=== PATIENT | male | born 1955 | race Caucasian/White ===

== ENCOUNTER 2018-04-01 05:49 | Inpatient (IN) | payer BC, MEDICAID ==
[~2018-04-01] VITALS: Ht 190.5 cm; Wt 98.8 kg
[~2018-04-01 05:49] MED LIST: INSUINJ IJ; INSUINJ2 SC
[2018-04-01] MEDS ORDERED: ALBUTEROL SULF 2.5 MG/0.5ML(0.5%) NEB SOLN HHN STA (05:57)
[2018-04-01] MEDS ORDERED: IPRATROPIUM BROM 0.5 MG/2.5ML INH SOL NEB ONE (06:00)
[2018-04-01 08:13] LABS: Urine Bacteria NONE SEEN /hpf (None Seen); Urine Blood TRACE /uL (Negative); Urine Specific Gravity 1.007 (1.001-1.035); Urine WBC <1 /hpf (0 - 3)
[2018-04-01 08:14] LABS: Basophils # (auto) 0.1 uL; Basophils % (auto) 1.3 % (0.0-2.0); Eosinophils # (auto) 0.3 uL; Eosinophils % (auto) 3.8 % (0.0-7.0); Hematocrit 35.7 % (41.0-53.0); Hemoglobin 11.8 g/dL (13.5-17.5); Lymphocytes # (auto) 2.2 uL; Mean Corpuscular Hemoglobin 27.9 pg (28.0-32.0); Mean Corpuscular Hgb Conc. 32.9 g/dL (32.0-36.0); Mean Corpuscular Volume 84.7 fL (80.0-100.0); Monocytes % (auto) 10.8 % (0.0-12.0); Neutrophils # (auto) 5.4 uL; Neutrophils % (auto) 60.1 % (37.0-80.0); Nucleated Red Blood Cells % 0.1 %; Platelet Count (auto) 324 10^3/uL (140-450); Red Blood Cells 4.22 10^6/uL (4.5-5.90); Red Cell Distribution Width 14.9 % (11.8-14.3)
[2018-04-01 08:20] LABS: INR 0.99 (0.9-1.15); Partial Thromboplastin Time 31.8 sec (23.78-33.04); Prothrombin Time 10.6 sec (9.27-12.13)
[2018-04-01 08:28] LABS: Albumin 2.4 g/dL (3.4-5.0); BUN/Creatinine Ratio 14.8; Bilirubin, Total 0.6 mg/dL (0.2-1.0); Calcium 8.6 mg/dL (8.5-10.1); Potassium 4.3 mmol/L (3.5-5.1); Total Protein 7.1 g/dL (6.4-8.2)
[2018-04-01] MEDS ORDERED: AZITHROMYCIN 500MG/ 250ML 250 ML IV ONE (08:45)
[2018-04-01] MEDS ORDERED: cefTRIAXone 1GM/10ml IVPUSH 10 ML IV ONE (08:45)
[2018-04-01] MEDS ORDERED: FUROSEMIDE 40 MG/4 ML VIAL IV ONE (10:45)
[2018-04-01] MEDS ORDERED: POTASSIUM CHL 10 Meq TABLET PO ONE (10:45)
[2018-04-01] MEDS ORDERED: DEXTROSE (50%) 50ML SYRG IV PRN (11:00)
[2018-04-01] MEDS ORDERED: METOPROLOL TARTRATE 25 MG TAB PO ONE (11:00)
[2018-04-01] MEDS ORDERED: ASPirin-EC 81 mg tab PO ONE (11:00)
[2018-04-01] MEDS ORDERED: ACETAMINOPHEN 325 MG TAB PO PRN (11:30)
[2018-04-01] MEDS ORDERED: ONDANSETRON HCL 4 MG/2 ML VIAL IV PRN (11:30)
[2018-04-01] MEDS ORDERED: NITROGLYCERIN 0.4 MG SL TAB SL PRN (11:30)
[2018-04-01] MEDS ORDERED: MORPHINE SULF INJ 2 MG/ML SYRINGE 1ML IV PRN (11:30)
[2018-04-01] MEDS ORDERED: DOCUSATE SOD 100 MG CAP PO PRN (11:30)
[2018-04-01] MEDS ORDERED: HYDROcodone-ACET 5/325MG TAB PO PRN (11:30)
[2018-04-01] MEDS: ALBUTEROL SULF 2.5 MG/0.5ML(0.5%) NEB SOLN NEB SCH ×2 (11:35→18:48)
[2018-04-01] MEDS: ACCU-CHEK COMFORT CURVE STRIP VI SCH ×3 (11:35→21:46)
[2018-04-01] MEDS: IPRATROPIUM BROM 0.5 MG/2.5ML INH SOL NEB SCH ×2 (11:35→18:48)
[2018-04-01] MEDS: InsuLIN REG 1unit/0.01ml Soln (100units/ml) SC SCH ×3 (11:51→21:46)
[2018-04-01 12:58] VITALS: BP 147/95
[2018-04-01] MEDS ORDERED: ATOR20TA PO (13:50)
[2018-04-01] MEDS ORDERED: METO25TA5 PO (13:51)
[2018-04-01] MEDS ORDERED: ASP81EC PO (13:52)
[2018-04-01 14:06] VITALS: BP 147/95
[2018-04-01] MEDS: Boost Glucose Control 8 Ounces PO SCH ×2 (14:47→18:00)
[2018-04-01] MEDS: SODIUM CHLOR 0.9% PF (SALINE LOCK) 10ML VIAL/SYR IV SCH ×2 (14:47→21:45)
[2018-04-01 17:36] VITALS: BP 150/76
[2018-04-01] MEDS: ATORVASTATIN 20 MG TAB PO SCH (21:45)
[2018-04-01] MEDS: INSULIN LANTUS (GLARGINE) 1 /0.01ml (100units/ml) SC SCH (21:46)
[2018-04-01] MEDS: METOPROLOL TARTRATE 25 MG TAB PO SCH (21:46)
[2018-04-01 22:00] VITALS: BP 150/75
[2018-04-02] MEDS: IPRATROPIUM BROM 0.5 MG/2.5ML INH SOL NEB SCH ×4 (00:24→20:10)
[2018-04-02] MEDS: ALBUTEROL SULF 2.5 MG/0.5ML(0.5%) NEB SOLN NEB SCH ×4 (00:24→20:10)
[2018-04-02 05:00] VITALS: BP 141/78
[2018-04-02] MEDS: SODIUM CHLOR 0.9% PF (SALINE LOCK) 10ML VIAL/SYR IV SCH ×3 (06:28→21:40)
[2018-04-02] MEDS: InsuLIN REG 1unit/0.01ml Soln (100units/ml) SC SCH ×4 (06:28→21:41)
[2018-04-02] MEDS: ACCU-CHEK COMFORT CURVE STRIP VI SCH ×4 (06:28→21:41)
[2018-04-02 07:28] LABS: Basophils # (auto) 0.2 uL; Eosinophils # (auto) 0.4 uL; Eosinophils % (auto) 5.1 % (0.0-7.0); Hematocrit 34.6 % (41.0-53.0); Hemoglobin 11.6 g/dL (13.5-17.5); Lymphocytes # (auto) 2.4 uL; Lymphocytes % (auto) 27.9 % (10.0-50.0); Mean Corpuscular Hemoglobin 28.6 pg (28.0-32.0); Mean Corpuscular Hgb Conc. 33.5 g/dL (32.0-36.0); Mean Corpuscular Volume 85.2 fL (80.0-100.0); Monocytes # (auto) 0.9 uL; Monocytes % (auto) 10.6 % (0.0-12.0); Neutrophils # (auto) 4.7 uL; Neutrophils % (auto) 54.4 % (37.0-80.0); Nucleated Red Blood Cells % 0.1 %; Platelet Count (auto) 311 10^3/uL (140-450); Red Blood Cells 4.06 10^6/uL (4.5-5.90); Red Cell Distribution Width 14.7 % (11.8-14.3); White Blood Cell 8.7 10^3/uL (4.4-10.8)
[2018-04-02 07:40] LABS: Chloride 103 mmol/L (98-107); Potassium 4.1 mmol/L (3.5-5.1); Sodium 139 mmol/L (136-145)
[2018-04-02 07:48] LABS: Albumin 2.1 g/dL (3.4-5.0); Anion Gap 13 (5-15); Aspartate Aminotransferase 15 U/L (15-37); Blood Urea Nitrogen 22 mg/dL (7-18); Calcium 8.3 mg/dL (8.5-10.1); Carbon Dioxide 23 mmol/L (21-32); GFR African American 77 mL/min; GFR Non-African American 64 mL/min; Glucose 133 mg/dL (74-106)
[2018-04-02] MEDS: Boost Glucose Control 8 Ounces PO SCH ×3 (08:00→20:35)
[2018-04-02 08:01] LABS: Alanine Aminotransferase 25 U/L (16-61); Alkaline Phosphatase 127 U/L (45-117); Bilirubin, Total 0.4 mg/dL (0.2-1.0); Total Protein 6.3 g/dL (6.4-8.2)
[2018-04-02 09:00] VITALS: BP 142/74
[2018-04-02] MEDS: cefTRIAXone 1GM/10ml IVPUSH 10 ML IV SCH (09:40)
[2018-04-02] MEDS: AZITHROMYCIN 500MG/ 250ML 250 ML IV SCH (09:41)
[2018-04-02] MEDS: FUROSEMIDE 40 MG/4 ML VIAL IV SCH (09:41)
[2018-04-02] MEDS: ASPirin-EC 81 mg tab PO SCH (09:41)
[2018-04-02] MEDS: MULTIPLE VITAMIN TAB PO SCH (09:42)
[2018-04-02] MEDS: POTASSIUM CHL 10 Meq TABLET PO SCH (09:42)
[2018-04-02] MEDS: METOPROLOL TARTRATE 25 MG TAB PO SCH ×2 (09:43→21:41)
[2018-04-02 13:00] VITALS: BP 140/77
[2018-04-02 17:00] VITALS: BP 136/75
[2018-04-02 21:32] VITALS: BP 143/80
[2018-04-02] MEDS: ATORVASTATIN 20 MG TAB PO SCH (21:40)
[2018-04-02] MEDS: INSULIN LANTUS (GLARGINE) 1 /0.01ml (100units/ml) SC SCH (21:41)
[2018-04-03 05:00] VITALS: BP 146/79
[2018-04-03] MEDS: IPRATROPIUM BROM 0.5 MG/2.5ML INH SOL NEB SCH ×4 (06:03→19:40)
[2018-04-03] MEDS: ALBUTEROL SULF 2.5 MG/0.5ML(0.5%) NEB SOLN NEB SCH ×4 (06:03→19:40)
[2018-04-03] MEDS: InsuLIN REG 1unit/0.01ml Soln (100units/ml) SC SCH ×4 (06:25→21:46)
[2018-04-03] MEDS: SODIUM CHLOR 0.9% PF (SALINE LOCK) 10ML VIAL/SYR IV SCH ×3 (06:25→21:46)
[2018-04-03] MEDS: ACCU-CHEK COMFORT CURVE STRIP VI SCH ×4 (06:26→21:41)
[2018-04-03] MEDS: Boost Glucose Control 8 Ounces PO SCH ×3 (07:47→18:00)
[2018-04-03] MEDS: cefTRIAXone 1GM/10ml IVPUSH 10 ML IV SCH (09:57)
[2018-04-03] MEDS: AZITHROMYCIN 500MG/ 250ML 250 ML IV SCH (09:59)
[2018-04-03] MEDS: FUROSEMIDE 40 MG/4 ML VIAL IV SCH (09:59)
[2018-04-03] MEDS: MULTIPLE VITAMIN TAB PO SCH (10:00)
[2018-04-03] MEDS: METOPROLOL TARTRATE 25 MG TAB PO SCH ×2 (10:00→21:40)
[2018-04-03] MEDS: ASPirin-EC 81 mg tab PO SCH (10:01)
[2018-04-03] MEDS: POTASSIUM CHL 10 Meq TABLET PO SCH (10:01)
[2018-04-03 10:17] VITALS: BP 137/79
[2018-04-03 12:27] VITALS: BP 128/70
[2018-04-03 17:14] VITALS: BP 125/67
[2018-04-03 21:30] VITALS: BP 133/68
[2018-04-03] MEDS: ATORVASTATIN 20 MG TAB PO SCH (21:40)
[2018-04-03] MEDS: INSULIN LANTUS (GLARGINE) 1 /0.01ml (100units/ml) SC SCH (21:46)
[2018-04-03] MEDS: TEMAZEPAM 15 MG CAP PO PRN (21:53)
[2018-04-04] VITALS (7 sets, daily range): BP systolic 125–150; BP diastolic 65–84
[2018-04-04] MEDS: ALBUTEROL SULF 2.5 MG/0.5ML(0.5%) NEB SOLN NEB SCH ×4 (01:12→19:03)
[2018-04-04] MEDS: IPRATROPIUM BROM 0.5 MG/2.5ML INH SOL NEB SCH ×4 (01:12→19:03)
[2018-04-04] MEDS: SODIUM CHLOR 0.9% PF (SALINE LOCK) 10ML VIAL/SYR IV SCH ×3 (06:34→21:45)
[2018-04-04] MEDS: InsuLIN REG 1unit/0.01ml Soln (100units/ml) SC SCH ×4 (06:35→21:46)
[2018-04-04] MEDS: ACCU-CHEK COMFORT CURVE STRIP VI SCH ×4 (06:35→21:41)
[2018-04-04] MEDS: Boost Glucose Control 8 Ounces PO SCH ×3 (08:21→18:00)
[2018-04-04] MEDS: AZITHROMYCIN 500MG/ 250ML 250 ML IV SCH (09:28)
[2018-04-04] MEDS: POTASSIUM CHL 10 Meq TABLET PO SCH (09:28)
[2018-04-04] MEDS: cefTRIAXone 1GM/10ml IVPUSH 10 ML IV SCH (09:28)
[2018-04-04] MEDS: METOPROLOL TARTRATE 25 MG TAB PO SCH ×2 (09:28→21:39)
[2018-04-04] MEDS: FUROSEMIDE 40 MG/4 ML VIAL IV SCH (09:28)
[2018-04-04] MEDS: MULTIPLE VITAMIN TAB PO SCH (09:28)
[2018-04-04] MEDS: ASPirin-EC 81 mg tab PO SCH (09:28)
[2018-04-04 16:10] LABS: Basophils # (auto) 0.1 uL; Basophils % (auto) 1.4 % (0.0-2.0); Eosinophils # (auto) 0.4 uL; Eosinophils % (auto) 4.8 % (0.0-7.0); Hematocrit 36.5 % (41.0-53.0); Hemoglobin 12.5 g/dL (13.5-17.5); Lymphocytes # (auto) 2.3 uL; Lymphocytes % (auto) 25.6 % (10.0-50.0); Mean Corpuscular Hemoglobin 29.1 pg (28.0-32.0); Mean Corpuscular Hgb Conc. 34.1 g/dL (32.0-36.0); Mean Corpuscular Volume 85.2 fL (80.0-100.0); Monocytes # (auto) 1.1 uL; Monocytes % (auto) 12.3 % (0.0-12.0); Neutrophils # (auto) 5.1 uL; Neutrophils % (auto) 55.9 % (37.0-80.0); Platelet Count (auto) 305 10^3/uL (140-450); Red Blood Cells 4.29 10^6/uL (4.5-5.90); Red Cell Distribution Width 15.1 % (11.8-14.3); White Blood Cell 9.2 10^3/uL (4.4-10.8)
[2018-04-04 16:27] LABS: Calcium 8.8 mg/dL (8.5-10.1); Potassium 4.5 mmol/L (3.5-5.1)
[2018-04-04] MEDS: ATORVASTATIN 20 MG TAB PO SCH (21:39)
[2018-04-04] MEDS: INSULIN LANTUS (GLARGINE) 1 /0.01ml (100units/ml) SC SCH (21:46)
[2018-04-04] MEDS: TEMAZEPAM 15 MG CAP PO PRN (21:54)
[2018-04-05] MEDS: ALBUTEROL SULF 2.5 MG/0.5ML(0.5%) NEB SOLN NEB SCH ×5 (00:48→23:34)
[2018-04-05] MEDS: IPRATROPIUM BROM 0.5 MG/2.5ML INH SOL NEB SCH ×5 (00:48→23:34)
[2018-04-05 04:57] VITALS: BP 121/56
[2018-04-05] MEDS: SODIUM CHLOR 0.9% PF (SALINE LOCK) 10ML VIAL/SYR IV SCH ×3 (06:08→21:49)
[2018-04-05] MEDS: InsuLIN REG 1unit/0.01ml Soln (100units/ml) SC SCH ×4 (06:08→21:49)
[2018-04-05] MEDS: ACCU-CHEK COMFORT CURVE STRIP VI SCH ×4 (06:08→21:45)
[2018-04-05 06:38] LABS: Basophils # (auto) 0.2 uL; Basophils % (auto) 2.4 % (0.0-2.0); Eosinophils # (auto) 0.5 uL; Eosinophils % (auto) 6.2 % (0.0-7.0); Hematocrit 37.3 % (41.0-53.0); Hemoglobin 12.6 g/dL (13.5-17.5); Lymphocytes # (auto) 2.9 uL; Lymphocytes % (auto) 32.5 % (10.0-50.0); Mean Corpuscular Hemoglobin 28.8 pg (28.0-32.0); Mean Corpuscular Hgb Conc. 33.8 g/dL (32.0-36.0); Mean Corpuscular Volume 85.2 fL (80.0-100.0); Monocytes # (auto) 1.2 uL; Monocytes % (auto) 13.8 % (0.0-12.0); Neutrophils % (auto) 45.1 % (37.0-80.0); Nucleated Red Blood Cells % 0.1 %; Platelet Count (auto) 290 10^3/uL (140-450); Red Blood Cells 4.38 10^6/uL (4.5-5.90); Red Cell Distribution Width 15.1 % (11.8-14.3); White Blood Cell 8.9 10^3/uL (4.4-10.8)
[2018-04-05 07:01] LABS: BUN/Creatinine Ratio 25.7; Calcium 9.1 mg/dL (8.5-10.1); Potassium 4.4 mmol/L (3.5-5.1)
[2018-04-05] MEDS ORDERED: IODIXANOL 320MG/ML 100ML BTL IV ONE (07:25)
[2018-04-05] MEDS ORDERED: LIDOCAINE 2% (LOCAL ANESTH.) PF 5ml SDV ONE (07:25)
[2018-04-05] MEDS: PRO-STAT 64 30ML PO SCH ×2 (08:00→18:09)
[2018-04-05] MEDS ORDERED: VERAPAMIL 2.5MG/ML INJ 2ML VIAL IV ONE (08:20)
[2018-04-05] MEDS ORDERED: ANGIOMAX 250 MG VIAL IV ONE (08:20)
[2018-04-05] MEDS ORDERED: SODIUM CHL 0.9% 0 ML ONE (08:21)
[2018-04-05] MEDS ORDERED: fentaNYL CITRATE 100 MCG/2 ML VL ONE (08:21)
[2018-04-05] MEDS ORDERED: EPTIFIBATIDE INJ (2MG/ML) 10ML VIAL IV ONE (08:21)
[2018-04-05] MEDS ORDERED: MIDAZOLAM HCL 1MG/1ML-2 ML VIAL ONE (08:21)
[2018-04-05] MEDS ORDERED: NITROGLYCERIN 5MG/ML 10ML VIAL IV ONE (08:24)
[2018-04-05] MEDS ORDERED: HEPARIN SODIUM (PORCINE) 5000 UNITS/ML 1ML VIAL ONE (08:48)
[2018-04-05] MEDS: ASPirin-EC 81 mg tab PO SCH (10:58)
[2018-04-05] MEDS: FUROSEMIDE 40 MG/4 ML VIAL IV SCH (10:58)
[2018-04-05] MEDS: AZITHROMYCIN 500MG/ 250ML 250 ML IV SCH (10:58)
[2018-04-05] MEDS: cefTRIAXone 1GM/10ml IVPUSH 10 ML IV SCH (10:58)
[2018-04-05] MEDS: METOPROLOL TARTRATE 25 MG TAB PO SCH ×2 (10:59→21:45)
[2018-04-05] MEDS: MULTIPLE VITAMIN TAB PO SCH (10:59)
[2018-04-05] MEDS: POTASSIUM CHL 10 Meq TABLET PO SCH (10:59)
[2018-04-05 13:00] VITALS: BP 125/73
[2018-04-05 17:00] VITALS: BP 134/68
[2018-04-05] MEDS: ATORVASTATIN 20 MG TAB PO SCH (21:45)
[2018-04-05] MEDS: INSULIN LANTUS (GLARGINE) 1 /0.01ml (100units/ml) SC SCH (21:49)
[2018-04-05 21:53] VITALS: BP 126/65
[2018-04-05] MEDS: TEMAZEPAM 15 MG CAP PO PRN (21:56)
[2018-04-06 04:55] VITALS: BP 146/80
[2018-04-06] MEDS: ALBUTEROL SULF 2.5 MG/0.5ML(0.5%) NEB SOLN NEB SCH ×2 (06:14→11:38)
[2018-04-06] MEDS: IPRATROPIUM BROM 0.5 MG/2.5ML INH SOL NEB SCH ×2 (06:14→11:38)
[2018-04-06] MEDS: SODIUM CHLOR 0.9% PF (SALINE LOCK) 10ML VIAL/SYR IV SCH (06:23)
[2018-04-06] MEDS: ACCU-CHEK COMFORT CURVE STRIP VI SCH ×2 (06:23→11:30)
[2018-04-06] MEDS: InsuLIN REG 1unit/0.01ml Soln (100units/ml) SC SCH ×2 (06:24→11:30)
[2018-04-06 08:00] VITALS: BP 133/76
[2018-04-06] MEDS: PRO-STAT 64 30ML PO SCH (08:00)
[2018-04-06 09:00] VITALS: BP 144/68
[2018-04-06] MEDS: METOPROLOL TARTRATE 25 MG TAB PO SCH (09:07)
[2018-04-06] MEDS: AZITHROMYCIN 500MG/ 250ML 250 ML IV SCH (09:07)
[2018-04-06] MEDS: MULTIPLE VITAMIN TAB PO SCH (09:07)
[2018-04-06] MEDS: ASPirin-EC 81 mg tab PO SCH (09:07)
[2018-04-06] MEDS: POTASSIUM CHL 10 Meq TABLET PO SCH (09:07)
[2018-04-06] MEDS: cefTRIAXone 1GM/10ml IVPUSH 10 ML IV SCH (09:08)
[2018-04-06] MEDS: FUROSEMIDE 40 MG/4 ML VIAL IV SCH (09:09)
[2018-04-06 09:51] VITALS: BP 144/68
== END 2018-04-06 11:45 | disposition home or self-care (01) | DRG 286 ==
LOC: ER 05:53 → TELE 05:54 → TELE-EAST 12:41
PROVIDERS: ADMIT Internal Medicine; ATTEND Family Medicine
PROC: 4A023N7 Measurement of Cardiac Sampling and Pressure, Left Heart, Percutaneous Approach (ICD-10-PCS; principal; 2018-04-05)
PROC: B2111ZZ Fluoroscopy of Multiple Coronary Arteries using Low Osmolar Contrast (ICD-10-PCS; 2018-04-05)
PROC: B2151ZZ Fluoroscopy of Left Heart using Low Osmolar Contrast (ICD-10-PCS; 2018-04-05)
DX: I13.0 Hypertensive heart and chronic kidney disease with heart failure and stage 1 through stage 4 chronic kidney disease, or unspecified chronic kidney disease (principal); A41.9 Sepsis, unspecified organism; J18.9 Pneumonia, unspecified organism; I50.43 Acute on chronic combined systolic (congestive) and diastolic (congestive) heart failure; J45.901 Unspecified asthma with (acute) exacerbation; E87.1 Hypo-osmolality and hyponatremia; E44.0 Moderate protein-calorie malnutrition; D63.8 Anemia in other chronic diseases classified elsewhere; E11.21 Type 2 diabetes mellitus with diabetic nephropathy; E11.22 Type 2 diabetes mellitus with diabetic chronic kidney disease; E78.00 Pure hypercholesterolemia, unspecified; E78.5 Hyperlipidemia, unspecified; I25.10 Atherosclerotic heart disease of native coronary artery without angina pectoris; N18.2 Chronic kidney disease, stage 2 (mild); I25.2 Old myocardial infarction; Z79.4 Long term (current) use of insulin; Z87.01 Personal history of pneumonia (recurrent); Z83.3 Family history of diabetes mellitus; Z68.27 Body mass index [BMI] 27.0-27.9, adult
CPT/HCPCS: 36415; 71046; 80048; 80053; 81001; 82962; 83036; 83605; 83880; 84443; 84484; 85025; 85610; 85730; 86850; 86900; 86901; 87040; 93005; 93306; 94640; 96365; 96375; 99152; J1815; J2250; J3490; Q9967

== ENCOUNTER 2018-05-04 14:55 | Inpatient (IN) | payer BC ==
[~2018-05-04] VITALS: Ht 188 cm; Wt 96.6 kg
[~2018-05-04 14:55] MED LIST changes: +ALBUAER3 IN; +ASP81EC PO; +ATOR20TA PO; +CLOP75TA28 PO; +FURO40TA4 PO; -INSUINJ IJ; +INSUINJ SC; +LISI40TA PO; +METO25TA5 PO; +POTA10TA51 PO
[2018-05-04 15:36] LABS: Basophils # (auto) 0.1 uL; Basophils % (auto) 0.8 % (0.0-2.0); Eosinophils # (auto) 0.5 uL; Eosinophils % (auto) 4.6 % (0.0-7.0); Hematocrit 42.1 % (41.0-53.0); Hemoglobin 14.6 g/dL (13.5-17.5); Lymphocytes # (auto) 3.5 uL; Lymphocytes % (auto) 32.9 % (10.0-50.0); Mean Corpuscular Hemoglobin 29.7 pg (28.0-32.0); Mean Corpuscular Hgb Conc. 34.6 g/dL (32.0-36.0); Mean Corpuscular Volume 85.9 fL (80.0-100.0); Monocytes # (auto) 1.3 uL; Monocytes % (auto) 11.8 % (0.0-12.0); Neutrophils # (auto) 5.3 uL; Neutrophils % (auto) 49.9 % (37.0-80.0); Nucleated Red Blood Cells % 0.1 %; Platelet Count (auto) 202 10^3/uL (140-450); Red Cell Distribution Width 15.5 % (11.8-14.3); White Blood Cell 10.6 10^3/uL (4.4-10.8)
[2018-05-04 15:57] LABS: Alanine Aminotransferase 30 U/L (16-61); Albumin 3.4 g/dL (3.4-5.0); Alkaline Phosphatase 79 U/L (45-117); Anion Gap 10 (5-15); Aspartate Aminotransferase 21 U/L (15-37); BUN/Creatinine Ratio 29.8; Bilirubin, Total 0.4 mg/dL (0.2-1.0); Blood Urea Nitrogen 48 mg/dL (7-18); Carbon Dioxide 24 mmol/L (21-32); Chloride 101 mmol/L (98-107); GFR African American 56 mL/min; GFR Non-African American 46 mL/min; Glucose 161 mg/dL (74-106); Potassium 4.9 mmol/L (3.5-5.1); Sodium 135 mmol/L (136-145); Total Protein 7.9 g/dL (6.4-8.2)
[2018-05-04] MEDS ORDERED: SODIUM CHLORIDE 0.9% 500 ML IV ONE (23:15)
[2018-05-04] MEDS ORDERED: MORPHINE SULF INJ 2 MG/ML SYRINGE 1ML IV PRN (23:15)
[2018-05-04] MEDS ORDERED: ONDANSETRON HCL 4 MG/2 ML VIAL IV ONE (23:15)
[2018-05-04] MEDS ORDERED: NITROGLYCERIN 0.4 MG SL TAB SL PRN (23:15)
[2018-05-04] MEDS ORDERED: ACETAMINOPHEN 500 MG TAB PO PRN (23:15)
[2018-05-04] MEDS ORDERED: HYDROcodone-ACET 5/325MG TAB PO PRN (23:15)
[2018-05-04] MEDS ORDERED: DEXTROSE (50%) 50ML SYRG IV PRN (23:45)
[2018-05-05 01:39] LABS: Urine Bacteria MOD /hpf (None Seen); Urine Blood TRACE /uL (Negative); Urine Hyaline Cast FEW /lpf (0 - 2); Urine Specific Gravity 1.012 (1.001-1.035); Urine WBC 1 /hpf (0 - 3)
[2018-05-05 05:10] VITALS: BP 130/63
[2018-05-05] MEDS: InsuLIN REG 1unit/0.01ml Soln (100units/ml) SC SCH ×4 (07:00→22:09)
[2018-05-05] MEDS: ACCU-CHEK COMFORT CURVE STRIP VI SCH ×4 (07:05→22:08)
[2018-05-05 07:18] LABS: Basophils # (auto) 0.1 uL; Basophils % (auto) 1.2 % (0.0-2.0); Eosinophils # (auto) 0.6 uL; Eosinophils % (auto) 5.5 % (0.0-7.0); Hematocrit 38.2 % (41.0-53.0); Hemoglobin 13.4 g/dL (13.5-17.5); Lymphocytes % (auto) 29.5 % (10.0-50.0); Mean Corpuscular Hgb Conc. 35.2 g/dL (32.0-36.0); Mean Corpuscular Volume 85.1 fL (80.0-100.0); Monocytes # (auto) 1.1 uL; Monocytes % (auto) 10.7 % (0.0-12.0); Neutrophils # (auto) 5.4 uL; Neutrophils % (auto) 53.1 % (37.0-80.0); Nucleated Red Blood Cells % 0.1 %; Platelet Count (auto) 171 10^3/uL (140-450); Red Blood Cells 4.49 10^6/uL (4.5-5.90); Red Cell Distribution Width 15.4 % (11.8-14.3); White Blood Cell 10.1 10^3/uL (4.4-10.8)
[2018-05-05 07:25] LABS: BUN/Creatinine Ratio 34.7; Calcium 8.6 mg/dL (8.5-10.1); Potassium 4.2 mmol/L (3.5-5.1)
[2018-05-05 07:38] LABS: Cholesterol 216 mg/dL (< 200); HDL Cholesterol 32 mg/dL (40-59); LDL Cholesterol 134 mg/dL (< 100); Triglycerides 276 mg/dL (< 150)
[2018-05-05 08:36] VITALS: BP 136/67
[2018-05-05] MEDS: CLOPIDOGREL BISULFATE 75 MG TAB PO SCH (10:28)
[2018-05-05] MEDS: METOPROLOL TARTRATE 25 MG TAB PO SCH ×2 (10:28→21:55)
[2018-05-05 12:24] VITALS: BP 144/73
[2018-05-05 17:35] VITALS: BP 126/68
[2018-05-05] MEDS ORDERED: ATORVASTATIN 20 MG TAB PO SCH (22:00)
[2018-05-05 23:01] VITALS: BP 125/66
[2018-05-06 05:20] VITALS: BP 141/69
[2018-05-06] MEDS ORDERED: LEVOTHYROXINE SODIUM 25 MCG TAB PO SCH (07:00)
[2018-05-06] MEDS: ACCU-CHEK COMFORT CURVE STRIP VI SCH ×2 (07:10→11:59)
[2018-05-06] MEDS: InsuLIN REG 1unit/0.01ml Soln (100units/ml) SC SCH ×2 (07:11→12:00)
[2018-05-06 09:00] VITALS: BP 107/58
[2018-05-06] MEDS: CLOPIDOGREL BISULFATE 75 MG TAB PO SCH (09:47)
[2018-05-06] MEDS: METOPROLOL TARTRATE 25 MG TAB PO SCH (09:48)
[2018-05-06] MEDS ORDERED: LISINOPRIL 20 MG TAB PO SCH (10:00)
[2018-05-06 13:00] VITALS: BP 133/67
[2018-05-06] MEDS ORDERED: ISO60SRT PO (15:26)
[2018-05-06] MEDS ORDERED: OMEP20TA PO (15:26)
[2018-05-06] MEDS ORDERED: LEV50T PO (15:40)
[2018-05-06 17:46] VITALS: BP 115/61
[2018-06-14] MEDS ORDERED: LOSA25TA9 PO (00:15)
[2018-06-14] MEDS ORDERED: AMLO5TAB2 PO (00:15)
== END 2018-05-06 18:00 | disposition home or self-care (01) | DRG 644 ==
LOC: ER 14:55 → TELE-CENTR 14:56
PROVIDERS: ADMIT Nurse Practitioner Family; ATTEND Hospitalist
DX: E03.9 Hypothyroidism, unspecified (principal); I42.9 Cardiomyopathy, unspecified; R07.89 Other chest pain; I12.9 Hypertensive chronic kidney disease with stage 1 through stage 4 chronic kidney disease, or unspecified chronic kidney disease; E78.5 Hyperlipidemia, unspecified; E11.22 Type 2 diabetes mellitus with diabetic chronic kidney disease; E78.00 Pure hypercholesterolemia, unspecified; E78.1 Pure hyperglyceridemia; I13.10 Hypertensive heart and chronic kidney disease without heart failure, with stage 1 through stage 4 chronic kidney disease, or unspecified chronic kidney disease; N18.2 Chronic kidney disease, stage 2 (mild); I25.10 Atherosclerotic heart disease of native coronary artery without angina pectoris; I44.7 Left bundle-branch block, unspecified; K21.9 Gastro-esophageal reflux disease without esophagitis; Z79.4 Long term (current) use of insulin; Z79.899 Other long term (current) drug therapy; Z82.49 Family history of ischemic heart disease and other diseases of the circulatory system; Z85.118 Personal history of other malignant neoplasm of bronchus and lung; Z87.01 Personal history of pneumonia (recurrent); I25.2 Old myocardial infarction; Z83.3 Family history of diabetes mellitus; Z80.1 Family history of malignant neoplasm of trachea, bronchus and lung
CPT/HCPCS: 36415; 70450; 71045; 80048; 80053; 80061; 81001; 82962; 83880; 84443; 84484; 85025; 87081; 93005; 96360; 96372; J1815

== ENCOUNTER 2018-06-01 12:06 | Emergency (ER) | payer BC ==
[~2018-06-01] VITALS: Ht 188 cm; Wt 97.5 kg
[~2018-06-01 12:06] MED LIST changes: +LEV50T PO; +OMEP20TA PO
[2018-06-01 13:48] LABS: Basophils # (auto) 0.1 uL; Basophils % (auto) 1.2 % (0.0-2.0); Eosinophils # (auto) 0.4 uL; Eosinophils % (auto) 3.5 % (0.0-7.0); Hematocrit 42.1 % (41.0-53.0); Hemoglobin 14.2 g/dL (13.5-17.5); Lymphocytes % (auto) 27.9 % (10.0-50.0); Mean Corpuscular Hemoglobin 29.1 pg (28.0-32.0); Mean Corpuscular Hgb Conc. 33.7 g/dL (32.0-36.0); Mean Corpuscular Volume 86.3 fL (80.0-100.0); Monocytes # (auto) 1.1 uL; Monocytes % (auto) 10.3 % (0.0-12.0); Neutrophils # (auto) 6.2 uL; Neutrophils % (auto) 57.1 % (37.0-80.0); Nucleated Red Blood Cells % 0.2 %; Platelet Count (auto) 234 10^3/uL (140-450); Red Blood Cells 4.88 10^6/uL (4.5-5.90); Red Cell Distribution Width 15.5 % (11.8-14.3); White Blood Cell 10.8 10^3/uL (4.4-10.8)
[2018-06-01 14:17] LABS: Alanine Aminotransferase 27 U/L (16-61); Albumin 3.2 g/dL (3.4-5.0); Anion Gap 9 (5-15); Aspartate Aminotransferase 17 U/L (15-37); BUN/Creatinine Ratio 24.2; Blood Urea Nitrogen 53 mg/dL (7-18); Calcium 8.1 mg/dL (8.5-10.1); Carbon Dioxide 22 mmol/L (21-32); Chloride 102 mmol/L (98-107); GFR African American 39 mL/min; GFR Non-African American 32 mL/min; Glucose 270 mg/dL (74-106); Magnesium 2.2 mg/dL (1.6-2.6); Sodium 133 mmol/L (136-145)
[2018-06-01 14:22] LABS: Alkaline Phosphatase 108 U/L (45-117); Bilirubin, Total 0.3 mg/dL (0.2-1.0); Total Protein 7.8 g/dL (6.4-8.2)
[2018-06-01 15:56] VITALS: BP 141/73
[2018-06-14] MEDS ORDERED: AMLO5TAB2 PO (00:15)
[2018-06-14] MEDS ORDERED: LOSA25TA9 PO (00:15)
== END 2018-06-01 18:13 | disposition home or self-care (01) ==
LOC: ER 12:06
DX: R06.02 Shortness of breath (principal); E11.21 Type 2 diabetes mellitus with diabetic nephropathy; E11.65 Type 2 diabetes mellitus with hyperglycemia; E44.1 Mild protein-calorie malnutrition; E78.5 Hyperlipidemia, unspecified; I10 Essential (primary) hypertension; I25.2 Old myocardial infarction; I25.10 Atherosclerotic heart disease of native coronary artery without angina pectoris; Z79.4 Long term (current) use of insulin; Z68.27 Body mass index [BMI] 27.0-27.9, adult
CPT/HCPCS: 36415; 71046; 80053; 83735; 83880; 84484; 85025; 93005

== ENCOUNTER 2018-06-13 17:49 | Inpatient (IN) | payer BC ==
[~2018-06-13] VITALS: Ht 188 cm; Wt 100.0 kg
[~2018-06-13 17:49] MED LIST changes: -POTA10TA51 PO
[2018-06-13 19:21] LABS: Basophils # (auto) 0.2 uL; Basophils % (auto) 1.9 % (0.0-2.0); Eosinophils # (auto) 0.4 uL; Hematocrit 42.2 % (41.0-53.0); Hemoglobin 14.5 g/dL (13.5-17.5); Lymphocytes # (auto) 3.8 uL; Lymphocytes % (auto) 34.6 % (10.0-50.0); Mean Corpuscular Hemoglobin 29.6 pg (28.0-32.0); Mean Corpuscular Hgb Conc. 34.4 g/dL (32.0-36.0); Mean Corpuscular Volume 85.9 fL (80.0-100.0); Monocytes # (auto) 1.4 uL; Monocytes % (auto) 12.6 % (0.0-12.0); Neutrophils # (auto) 5.2 uL; Neutrophils % (auto) 46.9 % (37.0-80.0); Nucleated Red Blood Cells % 0.1 %; Platelet Count (auto) 195 10^3/uL (140-450); Red Blood Cells 4.92 10^6/uL (4.5-5.90); Red Cell Distribution Width 15.1 % (11.8-14.3); White Blood Cell 11.1 10^3/uL (4.4-10.8)
[2018-06-13] MEDS ORDERED: ASPirin 81 mg TAB PO ONE (19:45)
[2018-06-13 19:51] LABS: Alanine Aminotransferase 27 U/L (16-61); Albumin 3.3 g/dL (3.4-5.0); Anion Gap 10 (5-15); Aspartate Aminotransferase 17 U/L (15-37); BUN/Creatinine Ratio 27.2; Blood Urea Nitrogen 41 mg/dL (7-18); Calcium 8.5 mg/dL (8.5-10.1); Carbon Dioxide 22 mmol/L (21-32); Chloride 102 mmol/L (98-107); GFR African American 60 mL/min; GFR Non-African American 50 mL/min; Glucose 173 mg/dL (74-106); Potassium 4.4 mmol/L (3.5-5.1); Sodium 134 mmol/L (136-145)
[2018-06-13 19:55] LABS: Alkaline Phosphatase 95 U/L (45-117); Bilirubin, Total 0.3 mg/dL (0.2-1.0); Total Protein 7.5 g/dL (6.4-8.2)
[2018-06-13 20:52] LABS: INR 0.91 (0.9-1.15); Partial Thromboplastin Time 31.2 sec (23.78-33.04); Prothrombin Time 9.8 sec (9.27-12.13)
[2018-06-13] MEDS ORDERED: DOCUSATE SOD 100 MG CAP PO PRN (22:15)
[2018-06-13] MEDS ORDERED: HYDROcodone-ACET 5/325MG TAB PO PRN (22:15)
[2018-06-13] MEDS ORDERED: MORPHINE SULF INJ 2 MG/ML SYRINGE 1ML IV PRN (22:15)
[2018-06-13] MEDS ORDERED: NITROGLYCERIN 0.4 MG SL TAB SL PRN (22:15)
[2018-06-13] MEDS ORDERED: ONDANSETRON HCL 4 MG/2 ML VIAL IV PRN (22:15)
[2018-06-13] MEDS ORDERED: DEXTROSE (50%) 50ML SYRG IV PRN (22:15)
[2018-06-13] MEDS ORDERED: TEMAZEPAM 15 MG CAP PO PRN (22:15)
[2018-06-13] MEDS ORDERED: ACETAMINOPHEN 325 MG TAB PO PRN (22:15)
[2018-06-13 23:50] VITALS: BP 162/77
[2018-06-14] MEDS: ACCU-CHEK COMFORT CURVE STRIP VI SCH ×5 (00:08→23:29)
[2018-06-14] MEDS: InsuLIN REG 1unit/0.01ml Soln (100units/ml) SC SCH ×5 (00:09→23:34)
[2018-06-14] MEDS ORDERED: LOSA25TA40 PO (00:15)
[2018-06-14] MEDS ORDERED: AMLO5TAB13 PO (00:15)
[2018-06-14] MEDS ORDERED: INSLANTI SC (00:15)
[2018-06-14 05:00] VITALS: BP 150/76
[2018-06-14] MEDS: LEVOTHYROXINE SODIUM 50 MCG TAB PO SCH (06:03)
[2018-06-14 06:51] LABS: Basophils # (auto) 0.1 uL; Eosinophils # (auto) 0.4 uL; Eosinophils % (auto) 4.4 % (0.0-7.0); Hematocrit 39.3 % (41.0-53.0); Hemoglobin 13.7 g/dL (13.5-17.5); Lymphocytes # (auto) 2.8 uL; Lymphocytes % (auto) 28.9 % (10.0-50.0); Mean Corpuscular Hemoglobin 29.5 pg (28.0-32.0); Mean Corpuscular Hgb Conc. 34.7 g/dL (32.0-36.0); Monocytes # (auto) 1.2 uL; Monocytes % (auto) 12.5 % (0.0-12.0); Neutrophils # (auto) 5.1 uL; Neutrophils % (auto) 53.2 % (37.0-80.0); Nucleated Red Blood Cells % 0.1 %; Platelet Count (auto) 160 10^3/uL (140-450); Red Blood Cells 4.63 10^6/uL (4.5-5.90); White Blood Cell 9.6 10^3/uL (4.4-10.8)
[2018-06-14 07:08] LABS: Albumin 2.9 g/dL (3.4-5.0); Calcium 8.9 mg/dL (8.5-10.1); Potassium 4.2 mmol/L (3.5-5.1)
[2018-06-14 07:11] LABS: Bilirubin, Total 0.3 mg/dL (0.2-1.0); Total Protein 6.6 g/dL (6.4-8.2)
[2018-06-14 08:00] VITALS: BP 157/76
[2018-06-14 08:19] VITALS: BP 157/76
[2018-06-14] MEDS: FAMOTIDINE 20 MG TAB PO SCH ×2 (09:13→22:05)
[2018-06-14] MEDS: CLOPIDOGREL BISULFATE 75 MG TAB PO SCH (09:13)
[2018-06-14] MEDS: ASPirin 81 mg TAB PO SCH (09:14)
[2018-06-14] MEDS: LISINOPRIL 20 MG TAB PO SCH ×2 (09:14→09:17)
[2018-06-14] MEDS: METOPROLOL TARTRATE 25 MG TAB PO SCH ×2 (09:14→22:05)
[2018-06-14] MEDS: FUROSEMIDE 40 MG TAB PO SCH (09:15)
[2018-06-14] MEDS: ENOXAPARIN SOD 40 MG/0.4 ML SYRINGE SC SCH (09:15)
[2018-06-14 12:00] VITALS: BP 134/71
[2018-06-14] MEDS ORDERED: diphenhdrAMINE HCL 50 MG/1 ML VL IV ONE (15:45)
[2018-06-14 16:00] VITALS: BP 140/67
[2018-06-14 21:57] VITALS: BP 118/67
[2018-06-14] MEDS: ATORVASTATIN 20 MG TAB PO SCH (22:04)
[2018-06-15 05:24] VITALS: BP 136/75
[2018-06-15] MEDS: InsuLIN REG 1unit/0.01ml Soln (100units/ml) SC SCH ×4 (06:00→23:51)
[2018-06-15] MEDS: ACCU-CHEK COMFORT CURVE STRIP VI SCH ×4 (06:15→23:49)
[2018-06-15] MEDS: LEVOTHYROXINE SODIUM 50 MCG TAB PO SCH (06:16)
[2018-06-15 08:26] VITALS: BP 142/71
[2018-06-15] MEDS: FAMOTIDINE 20 MG TAB PO SCH ×2 (09:49→22:09)
[2018-06-15] MEDS: METOPROLOL TARTRATE 25 MG TAB PO SCH ×2 (09:49→22:00)
[2018-06-15] MEDS: ASPirin 81 mg TAB PO SCH (09:50)
[2018-06-15] MEDS: CLOPIDOGREL BISULFATE 75 MG TAB PO SCH (09:50)
[2018-06-15] MEDS: LISINOPRIL 20 MG TAB PO SCH (09:50)
[2018-06-15] MEDS: FUROSEMIDE 40 MG TAB PO SCH (09:50)
[2018-06-15] MEDS: ENOXAPARIN SOD 40 MG/0.4 ML SYRINGE SC SCH (09:51)
[2018-06-15 12:57] LABS: Urine Bacteria NONE SEEN /hpf (None Seen); Urine Blood Negative /uL (Negative); Urine Specific Gravity 1.007 (1.001-1.035); Urine WBC 1 /hpf (0 - 3)
[2018-06-15 13:00] VITALS: BP_SYST 155
[2018-06-15 13:10] LABS: Protein, Urine 148.6 mg/dL (0.0-11.9)
[2018-06-15] MEDS: amLODIPine BESYLATE 5 MG TAB PO SCH (15:28)
[2018-06-15 16:56] VITALS: BP 143/72
[2018-06-15] MEDS: ATORVASTATIN 20 MG TAB PO SCH (22:07)
[2018-06-15 22:39] VITALS: BP 119/51
[2018-06-16 05:12] VITALS: BP 145/70
[2018-06-16] MEDS: LEVOTHYROXINE SODIUM 50 MCG TAB PO SCH (06:13)
[2018-06-16] MEDS: ACCU-CHEK COMFORT CURVE STRIP VI SCH ×4 (06:16→23:45)
[2018-06-16] MEDS: InsuLIN REG 1unit/0.01ml Soln (100units/ml) SC SCH ×4 (06:17→23:56)
[2018-06-16 07:03] LABS: BUN/Creatinine Ratio 24.4; Bilirubin, Total 0.4 mg/dL (0.2-1.0); Calcium 8.5 mg/dL (8.5-10.1); Potassium 4.7 mmol/L (3.5-5.1); Total Protein 6.9 g/dL (6.4-8.2)
[2018-06-16 09:00] VITALS: BP 135/62
[2018-06-16] MEDS: CLOPIDOGREL BISULFATE 75 MG TAB PO SCH (09:42)
[2018-06-16] MEDS: amLODIPine BESYLATE 5 MG TAB PO SCH (09:43)
[2018-06-16] MEDS: ASPirin 81 mg TAB PO SCH (09:44)
[2018-06-16] MEDS: METOPROLOL TARTRATE 25 MG TAB PO SCH ×2 (09:46→22:53)
[2018-06-16] MEDS: ENOXAPARIN SOD 40 MG/0.4 ML SYRINGE SC SCH (10:00)
[2018-06-16] MEDS: FAMOTIDINE 20 MG TAB PO SCH ×2 (10:00→22:00)
[2018-06-16 13:00] VITALS: BP 144/69
[2018-06-16 17:00] VITALS: BP 118/59
[2018-06-16 21:42] VITALS: BP 142/66
[2018-06-16] MEDS: ATORVASTATIN 20 MG TAB PO SCH (22:52)
[2018-06-17 05:17] VITALS: BP 139/69
[2018-06-17] MEDS: ACCU-CHEK COMFORT CURVE STRIP VI SCH ×4 (06:18→23:05)
[2018-06-17] MEDS: InsuLIN REG 1unit/0.01ml Soln (100units/ml) SC SCH ×4 (06:18→23:05)
[2018-06-17] MEDS: LEVOTHYROXINE SODIUM 50 MCG TAB PO SCH (06:19)
[2018-06-17] MEDS ORDERED: HEPARIN IN NS 1000Units/500mL 0 ML ONE (07:26)
[2018-06-17] MEDS ORDERED: IODIXANOL 320MG/ML 100ML BTL IV ONE (07:26)
[2018-06-17] MEDS ORDERED: LIDOCAINE 2% (LOCAL ANESTH.) PF 5ml SDV ONE (07:26)
[2018-06-17 09:00] VITALS: BP 137/75
[2018-06-17] MEDS: METOPROLOL TARTRATE 25 MG TAB PO SCH ×2 (10:50→21:33)
[2018-06-17] MEDS: FAMOTIDINE 20 MG TAB PO SCH ×2 (10:50→21:33)
[2018-06-17] MEDS: amLODIPine BESYLATE 5 MG TAB PO SCH (10:51)
[2018-06-17] MEDS: CLOPIDOGREL BISULFATE 75 MG TAB PO SCH (10:51)
[2018-06-17] MEDS: ASPirin 81 mg TAB PO SCH (10:51)
[2018-06-17] MEDS: ENOXAPARIN SOD 40 MG/0.4 ML SYRINGE SC SCH (10:52)
[2018-06-17 13:00] VITALS: BP 149/75
[2018-06-17 17:00] VITALS: BP 146/67
[2018-06-17] MEDS: ATORVASTATIN 20 MG TAB PO SCH (21:33)
[2018-06-17 21:59] VITALS: BP 139/72
[2018-06-17 22:05] VITALS: BP 139/72
[2018-06-18 04:51] VITALS: BP 140/74
[2018-06-18] MEDS: ACCU-CHEK COMFORT CURVE STRIP VI SCH ×2 (06:37→12:53)
[2018-06-18] MEDS: LEVOTHYROXINE SODIUM 50 MCG TAB PO SCH (06:37)
[2018-06-18] MEDS: InsuLIN REG 1unit/0.01ml Soln (100units/ml) SC SCH ×2 (06:43→12:52)
[2018-06-18 09:00] VITALS: BP 130/78
[2018-06-18] MEDS: FAMOTIDINE 20 MG TAB PO SCH ×2 (10:05→21:31)
[2018-06-18] MEDS: ASPirin 81 mg TAB PO SCH (10:05)
[2018-06-18] MEDS: CLOPIDOGREL BISULFATE 75 MG TAB PO SCH (10:05)
[2018-06-18] MEDS: METOPROLOL TARTRATE 25 MG TAB PO SCH ×2 (10:06→21:32)
[2018-06-18] MEDS: amLODIPine BESYLATE 5 MG TAB PO SCH (10:07)
[2018-06-18] MEDS: ENOXAPARIN SOD 40 MG/0.4 ML SYRINGE SC SCH (10:07)
[2018-06-18 12:44] VITALS: BP 143/75
[2018-06-18 14:21] LABS: Basophils # (auto) 0.1 uL; Basophils % (auto) 1.3 % (0.0-2.0); Eosinophils # (auto) 0.4 uL; Eosinophils % (auto) 4.3 % (0.0-7.0); Hematocrit 43.1 % (41.0-53.0); Hemoglobin 14.9 g/dL (13.5-17.5); Lymphocytes # (auto) 3.4 uL; Lymphocytes % (auto) 36.3 % (10.0-50.0); Mean Corpuscular Hemoglobin 29.5 pg (28.0-32.0); Mean Corpuscular Hgb Conc. 34.6 g/dL (32.0-36.0); Mean Corpuscular Volume 85.4 fL (80.0-100.0); Monocytes # (auto) 0.9 uL; Neutrophils # (auto) 4.6 uL; Neutrophils % (auto) 48.1 % (37.0-80.0); Platelet Count (auto) 190 10^3/uL (140-450); Red Blood Cells 5.04 10^6/uL (4.5-5.90); Red Cell Distribution Width 15.1 % (11.8-14.3); White Blood Cell 9.5 10^3/uL (4.4-10.8)
[2018-06-18 14:24] LABS: INR 0.94 (0.9-1.15); Prothrombin Time 10.1 sec (9.27-12.13)
[2018-06-18] MEDS ORDERED: LIDOCAINE 2% (LOCAL ANESTH.) PF 5ml SDV ONE (14:39)
[2018-06-18] MEDS ORDERED: IODIXANOL 320MG/ML 100ML BTL IV ONE (14:39)
[2018-06-18] MEDS ORDERED: ANGIOMAX 250 MG VIAL IV ONE (14:44)
[2018-06-18] MEDS ORDERED: fentaNYL CITRATE 100 MCG/2 ML VL ONE (14:44)
[2018-06-18] MEDS ORDERED: EPINEPHrine HCL 1 MG/10 ML SYRG ONE (14:44)
[2018-06-18] MEDS ORDERED: ATROPINE SULF 1 MG/10ml SYR ONE (14:44)
[2018-06-18] MEDS ORDERED: MIDAZOLAM HCL 1MG/1ML-2 ML VIAL ONE (14:44)
[2018-06-18] MEDS ORDERED: SODIUM CHL 0.9% 50 ML ONE (14:44)
[2018-06-18] MEDS: ATORVASTATIN 20 MG TAB PO SCH (21:31)
[2018-06-18 22:00] VITALS: BP 151/75
[2018-06-19] MEDS: ACCU-CHEK COMFORT CURVE STRIP VI SCH ×3 (02:00→11:54)
[2018-06-19 04:49] VITALS: BP 146/77
[2018-06-19] MEDS: LEVOTHYROXINE SODIUM 50 MCG TAB PO SCH (05:47)
[2018-06-19] MEDS: InsuLIN REG 1unit/0.01ml Soln (100units/ml) SC SCH ×3 (05:53→11:54)
[2018-06-19 07:33] LABS: Albumin 3.3 g/dL (3.4-5.0); BUN/Creatinine Ratio 25.3; Bilirubin, Total 0.3 mg/dL (0.2-1.0); Calcium 8.8 mg/dL (8.5-10.1); Phosphorus 3.7 mg/dL (2.5-4.90); Potassium 4.3 mmol/L (3.5-5.1); Total Protein 7.2 g/dL (6.4-8.2)
[2018-06-19 09:00] VITALS: BP 130/80
[2018-06-19] MEDS: CLOPIDOGREL BISULFATE 75 MG TAB PO SCH (09:59)
[2018-06-19] MEDS: FAMOTIDINE 20 MG TAB PO SCH (09:59)
[2018-06-19] MEDS: ASPirin 81 mg TAB PO SCH (09:59)
[2018-06-19] MEDS: ENOXAPARIN SOD 40 MG/0.4 ML SYRINGE SC SCH (10:00)
[2018-06-19] MEDS: amLODIPine BESYLATE 5 MG TAB PO SCH (10:00)
[2018-06-19] MEDS: METOPROLOL TARTRATE 25 MG TAB PO SCH (10:00)
[2018-06-19 13:00] VITALS: BP 144/67
[2018-06-19 15:06] VITALS: BP 144/67
== END 2018-06-19 16:40 | disposition home or self-care (01) | DRG 246 ==
LOC: ER 17:53 → TELE 17:54 → TELE-CENTR 23:08
PROVIDERS: ADMIT Nurse Practitioner; ATTEND Internal Medicine
PROC: 027136Z Dilation of Coronary Artery, Two Arteries with Three Drug-eluting Intraluminal Devices, Percutaneous Approach (ICD-10-PCS; principal; 2018-06-18)
PROC: 4A023N7 Measurement of Cardiac Sampling and Pressure, Left Heart, Percutaneous Approach (ICD-10-PCS; 2018-06-18)
PROC: B2111ZZ Fluoroscopy of Multiple Coronary Arteries using Low Osmolar Contrast (ICD-10-PCS; 2018-06-18)
DX: I25.10 Atherosclerotic heart disease of native coronary artery without angina pectoris (principal); N17.0 Acute kidney failure with tubular necrosis; I13.0 Hypertensive heart and chronic kidney disease with heart failure and stage 1 through stage 4 chronic kidney disease, or unspecified chronic kidney disease; I42.9 Cardiomyopathy, unspecified; E11.21 Type 2 diabetes mellitus with diabetic nephropathy; N18.3 Chronic kidney disease, stage 3 (moderate); E03.9 Hypothyroidism, unspecified; E11.22 Type 2 diabetes mellitus with diabetic chronic kidney disease; E11.65 Type 2 diabetes mellitus with hyperglycemia; E78.5 Hyperlipidemia, unspecified; I08.0 Rheumatic disorders of both mitral and aortic valves; I25.2 Old myocardial infarction; I50.9 Heart failure, unspecified; K21.9 Gastro-esophageal reflux disease without esophagitis; Z82.49 Family history of ischemic heart disease and other diseases of the circulatory system; Z95.5 Presence of coronary angioplasty implant and graft; Z83.3 Family history of diabetes mellitus; Z80.1 Family history of malignant neoplasm of trachea, bronchus and lung
CPT/HCPCS: 36415; 71046; 76775; 80053; 81001; 82570; 82962; 83735; 83880; 84100; 84156; 84300; 84443; 84484; 85025; 85610; 85730; 87081; 92928; 93005; 93306; 93458; 94761; 99152; A6257; C1874; J1815; J2001; J2250; Q9967

== ENCOUNTER 2018-10-17 12:29 | Inpatient (IN) | payer BC | END 2018-10-19 16:04 | disposition home health service (06) | LOC: ER 12:29 → TELE 15:25 → TELE-WESTW 18:00 | DX: I25.119 Atherosclerotic heart disease of native coronary artery with unspecified angina pectoris (principal); E87.1 Hypo-osmolality and hyponatremia; R07.9 Chest pain, unspecified; E87.5 Hyperkalemia; E11.65 Type 2 diabetes mellitus with hyperglycemia; E11.21 Type 2 diabetes mellitus with diabetic nephropathy; E11.22 Type 2 diabetes mellitus with diabetic chronic kidney disease; N18.3 Chronic kidney disease, stage 3 (moderate); Z82.49 Family history of ischemic heart disease and other diseases of the circulatory system; E03.9 Hypothyroidism, unspecified; E78.5 Hyperlipidemia, unspecified; K21.9 Gastro-esophageal reflux disease without esophagitis ==

== ENCOUNTER 2018-11-10 15:05 | Emergency (ER) | payer BC ==
[~2018-11-10] VITALS: Ht 188 cm; Wt 103.0 kg
[~2018-11-10 15:05] MED LIST changes: +AMLO5TAB13 PO; -FURO40TA4 PO; +INSLANTI SC; -INSUINJ2 SC; -LISI40TA PO; -OMEP20TA PO
[2018-11-10 15:43] LABS: Basophils # (auto) 0.1 uL; Basophils % (auto) 0.9 % (0.0-2.0); Eosinophils # (auto) 0.5 uL; Eosinophils % (auto) 4.1 % (0.0-7.0); Hematocrit 41.4 % (41.0-53.0); Hemoglobin 14.3 g/dL (13.5-17.5); Lymphocytes # (auto) 3.3 uL; Mean Corpuscular Hemoglobin 29.8 pg (28.0-32.0); Mean Corpuscular Hgb Conc. 34.5 g/dL (32.0-36.0); Mean Corpuscular Volume 86.5 fL (80.0-100.0); Monocytes # (auto) 1.2 uL; Monocytes % (auto) 10.8 % (0.0-12.0); Neutrophils # (auto) 6.3 uL; Neutrophils % (auto) 55.2 % (37.0-80.0); Platelet Count (auto) 252 10^3/uL (140-450); Red Blood Cells 4.79 10^6/uL (4.5-5.90); Red Cell Distribution Width 13.8 % (11.8-14.3); White Blood Cell 11.4 10^3/uL (4.4-10.8)
[2018-11-10 15:47] LABS: Urine Bacteria NONE SEEN /hpf (None Seen); Urine Blood 1+ /uL (Negative); Urine WBC 1 /hpf (0 - 3)
[2018-11-10 16:10] LABS: Calcium 8.7 mg/dL (8.5-10.1); Potassium 4.8 mmol/L (3.5-5.1)
[2018-11-10 16:18] LABS: Albumin 3.4 g/dL (3.4-5.0); BUN/Creatinine Ratio 21.3; Bilirubin, Total 0.4 mg/dL (0.2-1.0); Total Protein 7.7 g/dL (6.4-8.2)
[2018-11-10 17:30] VITALS: BP 140/72
== END 2018-11-10 17:34 | disposition home or self-care (01) ==
LOC: ER 15:07
DX: I13.0 Hypertensive heart and chronic kidney disease with heart failure and stage 1 through stage 4 chronic kidney disease, or unspecified chronic kidney disease (principal); E11.22 Type 2 diabetes mellitus with diabetic chronic kidney disease; N18.3 Chronic kidney disease, stage 3 (moderate); I50.9 Heart failure, unspecified; E11.21 Type 2 diabetes mellitus with diabetic nephropathy; I25.10 Atherosclerotic heart disease of native coronary artery without angina pectoris; K76.0 Fatty (change of) liver, not elsewhere classified; J44.9 Chronic obstructive pulmonary disease, unspecified; I25.2 Old myocardial infarction; Z85.850 Personal history of malignant neoplasm of thyroid; Z79.4 Long term (current) use of insulin
CPT/HCPCS: 36415; 71046; 76705; 80053; 81001; 84484; 85025; 93005

== ENCOUNTER 2018-11-24 14:46 | Emergency (ER) | payer BC ==
[~2018-11-24] VITALS: Ht 188 cm; Wt 102.1 kg
[2018-11-24 15:00] VITALS: BP 149/66
[2018-11-24 15:40] LABS: Basophils # (auto) 0.1 uL; Basophils % (auto) 1.3 % (0.0-2.0); Eosinophils # (auto) 0.5 uL; Eosinophils % (auto) 4.8 % (0.0-7.0); Hematocrit 41.4 % (41.0-53.0); Hemoglobin 14.1 g/dL (13.5-17.5); Lymphocytes % (auto) 29.3 % (10.0-50.0); Mean Corpuscular Hemoglobin 29.7 pg (28.0-32.0); Mean Corpuscular Hgb Conc. 34.1 g/dL (32.0-36.0); Mean Corpuscular Volume 86.9 fL (80.0-100.0); Monocytes # (auto) 1.1 uL; Monocytes % (auto) 10.6 % (0.0-12.0); Neutrophils # (auto) 5.6 uL; Nucleated Red Blood Cells % 0.1 %; Platelet Count (auto) 218 10^3/uL (140-450); Red Blood Cells 4.76 10^6/uL (4.5-5.90); Red Cell Distribution Width 14.1 % (11.8-14.3); White Blood Cell 10.3 10^3/uL (4.4-10.8)
[2018-11-24 15:54] LABS: Potassium 4.7 mmol/L (3.5-5.1)
[2018-11-24 15:59] LABS: Albumin 3.2 g/dL (3.4-5.0); BUN/Creatinine Ratio 23.9; Bilirubin, Total 0.3 mg/dL (0.2-1.0); Calcium 8.6 mg/dL (8.5-10.1); Total Protein 7.4 g/dL (6.4-8.2)
== END 2018-11-24 21:53 | disposition left against medical advice (07) ==
LOC: ER 14:52
DX: R10.9 Unspecified abdominal pain (principal); Z53.21 Procedure and treatment not carried out due to patient leaving prior to being seen by health care provider
CPT/HCPCS: 36415; 74176; 80053; 82150; 83690; 85025; 93005

== ENCOUNTER 2019-01-07 17:39 | Inpatient (IN) | payer BC ==
[~2019-01-07] VITALS: Ht 188 cm; Wt 101.8 kg
[~2019-01-07 17:39] MED LIST changes: +AMI200T PO; +CEPH-37 PO; +HYDR-4683 PO; +METR500T PO
[2019-01-07 18:25] LABS: Basophils # (auto) 0.1 uL; Basophils % (auto) 1.2 % (0.0-2.0); Eosinophils # (auto) 0.6 uL; Eosinophils % (auto) 5.2 % (0.0-7.0); Hematocrit 33.7 % (41.0-53.0); Lymphocytes # (auto) 2.1 uL; Lymphocytes % (auto) 18.5 % (10.0-50.0); Mean Corpuscular Hemoglobin 28.2 pg (28.0-32.0); Mean Corpuscular Hgb Conc. 32.8 g/dL (32.0-36.0); Mean Corpuscular Volume 86.2 fL (80.0-100.0); Monocytes # (auto) 1.7 uL; Monocytes % (auto) 14.5 % (0.0-12.0); Neutrophils % (auto) 60.6 % (37.0-80.0); Nucleated Red Blood Cells % 0.1 %; Platelet Count (auto) 304 10^3/uL (140-450); Red Blood Cells 3.91 10^6/uL (4.5-5.90); Red Cell Distribution Width 15.1 % (11.8-14.3); White Blood Cell 11.5 10^3/uL (4.4-10.8)
[2019-01-07 18:34] LABS: Alanine Aminotransferase 60 U/L (16-61); Albumin 2.4 g/dL (3.4-5.0); Anion Gap 9 (5-15); Aspartate Aminotransferase 26 U/L (15-37); BUN/Creatinine Ratio 14.3; Blood Urea Nitrogen 31 mg/dL (7-18); Calcium 8.2 mg/dL (8.5-10.1); Carbon Dioxide 21 mmol/L (21-32); Chloride 103 mmol/L (98-107); GFR African American 40 mL/min; GFR Non-African American 33 mL/min; Glucose 209 mg/dL (74-106); Magnesium 2.3 mg/dL (1.6-2.6); Potassium 4.5 mmol/L (3.5-5.1); Sodium 133 mmol/L (136-145)
[2019-01-07 18:39] LABS: Alkaline Phosphatase 178 U/L (45-117); Bilirubin, Total 0.4 mg/dL (0.2-1.0); Total Protein 7.2 g/dL (6.4-8.2)
[2019-01-07] MEDS ORDERED: MECLIZINE HCL 25 MG TAB PO ONE (22:45)
[2019-01-08] VITALS (10 sets, daily range): BP systolic 128–163; BP diastolic 57–80
[2019-01-08] MEDS ORDERED: HYDROcodone-ACET 5/325MG TAB PO PRN (02:15)
[2019-01-08] MEDS ORDERED: ONDANSETRON HCL 4 MG/2 ML VIAL IV PRN (02:15)
[2019-01-08] MEDS ORDERED: DEXTROSE (50%) 50ML SYRG IV PRN (02:15)
[2019-01-08] MEDS ORDERED: ACETAMINOPHEN 500 MG TAB PO PRN (02:15)
[2019-01-08] MEDS ORDERED: TEMAZEPAM 15 MG CAP PO PRN (02:15)
[2019-01-08] MEDS: ACCU-CHEK COMFORT CURVE STRIP VI SCH ×4 (07:05→22:04)
[2019-01-08] MEDS: LEVOTHYROXINE SODIUM 50 MCG TAB PO SCH (07:05)
[2019-01-08] MEDS: InsuLIN REG 1unit/0.01ml Soln (100units/ml) SC SCH ×3 (07:05→17:00)
[2019-01-08 07:23] LABS: Basophils # (auto) 0.2 uL; Basophils % (auto) 1.8 % (0.0-2.0); Eosinophils # (auto) 0.7 uL; Eosinophils % (auto) 7.4 % (0.0-7.0); Hematocrit 30.9 % (41.0-53.0); Hemoglobin 10.2 g/dL (13.5-17.5); Lymphocytes # (auto) 1.3 uL; Lymphocytes % (auto) 13.3 % (10.0-50.0); Mean Corpuscular Hemoglobin 28.2 pg (28.0-32.0); Mean Corpuscular Hgb Conc. 32.9 g/dL (32.0-36.0); Mean Corpuscular Volume 85.6 fL (80.0-100.0); Monocytes # (auto) 1.3 uL; Monocytes % (auto) 12.9 % (0.0-12.0); Neutrophils # (auto) 6.3 uL; Neutrophils % (auto) 64.6 % (37.0-80.0); Platelet Count (auto) 266 10^3/uL (140-450); Red Blood Cells 3.61 10^6/uL (4.5-5.90); Red Cell Distribution Width 14.9 % (11.8-14.3); White Blood Cell 9.8 10^3/uL (4.4-10.8)
[2019-01-08 07:48] LABS: BUN/Creatinine Ratio 14.5; Calcium 8.2 mg/dL (8.5-10.1); Cholesterol 107 mg/dL (< 200); Potassium 4.4 mmol/L (3.5-5.1); Triglycerides 153 mg/dL (< 150)
[2019-01-08 07:50] LABS: HDL Cholesterol 31 mg/dL (40-59); LDL Cholesterol 61 mg/dL (< 100)
[2019-01-08] MEDS ORDERED: FUROSEMIDE 20 MG/2 ML VIAL IV ONE (08:00)
[2019-01-08] MEDS: METOPROLOL TARTRATE 25 MG TAB PO SCH ×2 (09:40→22:03)
[2019-01-08] MEDS: amLODIPine BESYLATE 5 MG TAB PO SCH (09:40)
[2019-01-08] MEDS: AMIODARONE HCL 200 MG TAB PO SCH ×2 (09:40→22:40)
[2019-01-08] MEDS: CLOPIDOGREL BISULFATE 75 MG TAB PO SCH (09:41)
[2019-01-08] MEDS: FAMOTIDINE 20 MG TAB PO SCH ×2 (09:41→22:03)
[2019-01-08] MEDS: ASPirin-EC 81 mg tab PO SCH (09:41)
--- NOTE | 2019-01-08 10:30 | NUR ---
RECEIVED PATIENT FROM ED, NO REPORT RECEIVED, PATIENT IS A/O X4, DENIES ANY CHEST PAIN OR SOB, NO S/S DISTRESS NOTED, IV LEFT FOREARM INTACT AND PATENT, POC DISCUSSED WITH PATIENT, BED LOCKED IN LOWEST POSITION, CALL LIGHT WITHIN REACH, WILL CONTINUE TO MONITOR Q 1HR AND PRN
[2019-01-08 12:53] LABS: Urine Bacteria FEW /hpf (None Seen); Urine Blood 1+ /uL (Negative); Urine Specific Gravity 1.007 (1.001-1.035); Urine WBC 1 /hpf (0 - 3)
[2019-01-08 16:13] LABS: Basophils # (auto) 0.2 uL; Basophils % (auto) 1.8 % (0.0-2.0); Eosinophils # (auto) 0.7 uL; Eosinophils % (auto) 6.9 % (0.0-7.0); Hemoglobin 10.5 g/dL (13.5-17.5); Lymphocytes # (auto) 1.8 uL; Mean Corpuscular Hemoglobin 28.4 pg (28.0-32.0); Mean Corpuscular Hgb Conc. 32.9 g/dL (32.0-36.0); Mean Corpuscular Volume 86.2 fL (80.0-100.0); Monocytes # (auto) 1.4 uL; Monocytes % (auto) 13.9 % (0.0-12.0); Neutrophils % (auto) 59.4 % (37.0-80.0); Nucleated Red Blood Cells % 0.2 %; Platelet Count (auto) 287 10^3/uL (140-450); Red Blood Cells 3.71 10^6/uL (4.5-5.90); Red Cell Distribution Width 15.2 % (11.8-14.3); White Blood Cell 10.1 10^3/uL (4.4-10.8)
--- NOTE | 2019-01-08 19:00 | NUR ---
Opening Shift Note Received shift report from Elaine ANN. Assumed care of patient, awake and alert. Respirations regular and unlabored. No S/S of distress/SOB or pain. Instructed on POC and to call for assist PRN, will continue to monitor for changes Q1hr and PRN. Bed in lowest position, side rails up x2, call light within reach. Continuing to monitor.
[2019-01-08] MEDS ORDERED: ATORVASTATIN 20 MG TAB PO SCH (22:00)
[2019-01-08] MEDS ORDERED: InsuLIN REG 1unit/0.01ml Soln (100units/ml) SC SCH (22:00)
[2019-01-09] VITALS (7 sets, daily range): BP systolic 138–146; BP diastolic 62–78
[2019-01-09] MEDS: LEVOTHYROXINE SODIUM 50 MCG TAB PO SCH (06:18)
[2019-01-09] MEDS: InsuLIN REG 1unit/0.01ml Soln (100units/ml) SC SCH ×2 (06:19→12:17)
[2019-01-09] MEDS: ACCU-CHEK COMFORT CURVE STRIP VI SCH ×2 (06:19→12:16)
--- NOTE | 2019-01-09 07:30 | NUR ---
Opening Shift Note Assumed care of patient, awake and alert. No S/S of distress/SOB or pain. Instructed on POC and to call for assist PRN, will continue to monitor for changes Q1hr and PRN.
[2019-01-09 09:26] LABS: BUN/Creatinine Ratio 15.5; Calcium 8.1 mg/dL (8.5-10.1); Potassium 4.9 mmol/L (3.5-5.1)
[2019-01-09] MEDS: ASPirin-EC 81 mg tab PO SCH (09:58)
[2019-01-09] MEDS: AMIODARONE HCL 200 MG TAB PO SCH (09:58)
[2019-01-09] MEDS: METOPROLOL TARTRATE 25 MG TAB PO SCH (09:59)
[2019-01-09] MEDS: CLOPIDOGREL BISULFATE 75 MG TAB PO SCH (10:05)
[2019-01-09] MEDS: FAMOTIDINE 20 MG TAB PO SCH (10:05)
[2019-01-09] MEDS: amLODIPine BESYLATE 5 MG TAB PO SCH (10:05)
--- NOTE | 2019-01-09 10:29 | NUR ---
PATIENT REPORTS THAT HE WALKS FINE WITHOUT ANY SYMPTOMS. PT DENIES NEED FOR P.T.
--- NOTE | 2019-01-09 11:00 | NUR ---
CALLED [employer] THEY SAID THAT THE PATIENT IS ON THEIR LIST AND THEY WOULD GET TO HIM TODAY. THEY COULD NOT GIVE ME AN EXACT TIME.
--- NOTE | 2019-01-09 17:32 | NUR ---
Discharge instructions given as ordered. Encourage to follow up with PMD as instructed. All questions and concerns addressed. Patient verbalized understanding. IV removed with catheter intact, pressure dressing applied. Telemetry unit returned to [facility]. Patient ambulated to vehicle with all personal belongings, accompanied by staff and family member. No distress noted at time of departure.
== END 2019-01-09 17:32 | disposition home or self-care (01) | DRG 152 ==
LOC: ER 17:47 → TELE 01-08 02:26 → TELE-CENTR 01-08 08:36
PROVIDERS: ADMIT Nurse Practitioner Family; ATTEND Hospitalist
DX: J06.9 Acute upper respiratory infection, unspecified (principal); E43 Unspecified severe protein-calorie malnutrition; I13.0 Hypertensive heart and chronic kidney disease with heart failure and stage 1 through stage 4 chronic kidney disease, or unspecified chronic kidney disease; E87.1 Hypo-osmolality and hyponatremia; G45.9 Transient cerebral ischemic attack, unspecified; E10.22 Type 1 diabetes mellitus with diabetic chronic kidney disease; E78.5 Hyperlipidemia, unspecified; N18.3 Chronic kidney disease, stage 3 (moderate); E03.9 Hypothyroidism, unspecified; E10.65 Type 1 diabetes mellitus with hyperglycemia; E86.0 Dehydration; I25.10 Atherosclerotic heart disease of native coronary artery without angina pectoris; I48.0 Paroxysmal atrial fibrillation; I44.0 Atrioventricular block, first degree; I50.9 Heart failure, unspecified; J44.9 Chronic obstructive pulmonary disease, unspecified; K21.9 Gastro-esophageal reflux disease without esophagitis; Z79.02 Long term (current) use of antithrombotics/antiplatelets; Z79.4 Long term (current) use of insulin; Z79.82 Long term (current) use of aspirin; Z82.49 Family history of ischemic heart disease and other diseases of the circulatory system; Z95.5 Presence of coronary angioplasty implant and graft; Z68.28 Body mass index [BMI] 28.0-28.9, adult; Z90.49 Acquired absence of other specified parts of digestive tract
CPT/HCPCS: 36415; 70450; 70551; 71046; 78582; 80048; 80053; 80061; 81001; 82962; 83735; 84443; 84484; 85025; 85379; 93005; 93306; 96374; G0378; J1815

== ENCOUNTER 2019-08-10 12:57 | Inpatient (IN) | payer BC ==
[~2019-08-10] VITALS: Ht 190.5 cm; Wt 117.0 kg
[~2019-08-10 12:57] MED LIST changes: -AMI200T PO; +AMIO200T4 PO; -AMLO5TAB13 PO; -CEPH-37 PO; -CLOP75TA28 PO; -HYDR-4683 PO; -METR500T PO
[2019-08-10] MEDS ORDERED: SODIUM CHLORIDE 0.9% 1,000 ML IV ONE ×4 (13:22→14:45)
[2019-08-10] MEDS ORDERED: ACETAMINOPHEN 500 MG TAB PO PRN (13:30)
[2019-08-10] MEDS ORDERED: MORPHINE SULF INJ 2 MG/ML SYRINGE 1ML IV PRN (13:30)
[2019-08-10] MEDS ORDERED: ALBUTEROL SULF 2.5 MG/0.5ML(0.5%) NEB SOLN NEB ONE (13:30)
[2019-08-10] MEDS ORDERED: IPRATROPIUM BROM 0.5 MG/2.5ML INH SOL NEB ONE (13:30)
[2019-08-10] MEDS ORDERED: NITROGLYCERIN 0.4 MG SL TAB SL PRN (13:30)
[2019-08-10] MEDS ORDERED: cefTRIAXone 1GM/50ML D5W 50 ML IV ONE (13:30)
[2019-08-10] MEDS ORDERED: DEXTROSE (50%) 50ML SYRG IV PRN (13:30)
[2019-08-10] MEDS ORDERED: AZITHROMYCIN 500MG/ 250ML 250 ML IV ONE (13:30)
[2019-08-10] MEDS: cefTRIAXone 1GM/50ML D5W 50 ML IV SCH (13:46)
[2019-08-10] MEDS: AZITHROMYCIN 500MG/ 250ML 250 ML IV SCH (13:52)
[2019-08-10 14:01] LABS: Basophils # (auto) 0.1 uL; Basophils % (auto) 0.4 % (0.0-2.0); Eosinophils # (auto) 0 uL; Hemoglobin 10.5 g/dL (13.5-17.5); Lymphocytes # (auto) 0.5 uL; Lymphocytes % (auto) 2.6 % (10.0-50.0); Mean Corpuscular Hemoglobin 28.1 pg (28.0-32.0); Mean Corpuscular Hgb Conc. 32.8 g/dL (32.0-36.0); Mean Corpuscular Volume 85.9 fL (80.0-100.0); Monocytes # (auto) 1.8 uL; Monocytes % (auto) 9.6 % (0.0-12.0); Neutrophils % (auto) 87.4 % (37.0-80.0); Platelet Count (auto) 215 10^3/uL (140-450); Red Blood Cells 3.72 10^6/uL (4.5-5.90); Red Cell Distribution Width 15.6 % (11.8-14.3); White Blood Cell 18.3 10^3/uL (4.4-10.8)
[2019-08-10 14:18] LABS: Albumin 1.8 g/dL (3.4-5.0); Calcium 7.3 mg/dL (8.5-10.1); Potassium 4.3 mmol/L (3.5-5.1)
[2019-08-10 14:20] LABS: Lactic Acid w/Reflex 2.2 mmol/L (0.4-2.0)
[2019-08-10 14:21] LABS: BUN/Creatinine Ratio 12.4
[2019-08-10 14:29] LABS: Bilirubin, Total 0.4 mg/dL (0.2-1.0); Total Protein 5.7 g/dL (6.4-8.2)
[2019-08-10 14:41] LABS: Cholesterol 160 mg/dL (< 200); HDL Cholesterol 37 mg/dL (40-59); LDL Cholesterol 97 mg/dL (< 100); Triglycerides 132 mg/dL (< 150)
[2019-08-10 16:54] LABS: INR 1.04 (0.9-1.15); Partial Thromboplastin Time 28.5 sec (23.64-32.05)
[2019-08-10 17:11] VITALS: BP 109/53
[2019-08-10] MEDS: ACCU-CHEK COMFORT CURVE STRIP VI SCH ×2 (17:55→22:05)
[2019-08-10] MEDS: InsuLIN REG 1unit/0.01ml Soln (100units/ml) SC SCH ×2 (17:55→22:04)
[2019-08-10] MEDS: ALBUTEROL SULF 2.5 MG/0.5ML(0.5%) NEB SOLN NEB SCH ×2 (18:00→21:53)
[2019-08-10] MEDS: IPRATROPIUM BROM 0.5 MG/2.5ML INH SOL NEB SCH ×2 (18:00→21:53)
[2019-08-10] MEDS: ATORVASTATIN 20 MG TAB PO SCH (21:45)
[2019-08-10] MEDS: TICAGRELOR 90 MG TAB PO SCH (21:45)
[2019-08-10] MEDS ORDERED: AMIODARONE HCL 200 MG TAB PO SCH (22:00)
[2019-08-11] MEDS: ONDANSETRON HCL 4 MG/2 ML VIAL IV PRN ×2 (00:19→22:23)
[2019-08-11] MEDS: IPRATROPIUM BROM 0.5 MG/2.5ML INH SOL NEB SCH ×3 (06:12→19:16)
[2019-08-11] MEDS: ALBUTEROL SULF 2.5 MG/0.5ML(0.5%) NEB SOLN NEB SCH ×3 (06:12→19:16)
[2019-08-11 06:13] LABS: Basophils # (auto) 0.1 uL; Basophils % (auto) 0.5 % (0.0-2.0); Eosinophils # (auto) 0 uL; Eosinophils % (auto) 0.1 % (0.0-7.0); Hemoglobin 9.6 g/dL (13.5-17.5); Lymphocytes # (auto) 1.4 uL; Lymphocytes % (auto) 7.9 % (10.0-50.0); Mean Corpuscular Hemoglobin 29.7 pg (28.0-32.0); Mean Corpuscular Hgb Conc. 34.4 g/dL (32.0-36.0); Mean Corpuscular Volume 86.4 fL (80.0-100.0); Monocytes # (auto) 1.9 uL; Monocytes % (auto) 10.6 % (0.0-12.0); Neutrophils # (auto) 14.4 uL; Neutrophils % (auto) 80.9 % (37.0-80.0); Platelet Count (auto) 203 10^3/uL (140-450); Red Blood Cells 3.24 10^6/uL (4.5-5.90); Red Cell Distribution Width 15.8 % (11.8-14.3); White Blood Cell 17.8 10^3/uL (4.4-10.8)
[2019-08-11 06:28] LABS: INR 1.1 (0.9-1.15); Partial Thromboplastin Time 32.1 sec (23.64-32.05)
[2019-08-11 06:31] LABS: Albumin 1.6 g/dL (3.4-5.0); BUN/Creatinine Ratio 12.8; Calcium 7.4 mg/dL (8.5-10.1); Potassium 4.3 mmol/L (3.5-5.1)
[2019-08-11 06:33] LABS: Bilirubin, Total 0.3 mg/dL (0.2-1.0); Total Protein 5.4 g/dL (6.4-8.2)
[2019-08-11] MEDS: LEVOTHYROXINE SODIUM 50 MCG TAB PO SCH (06:54)
[2019-08-11] MEDS: InsuLIN REG 1unit/0.01ml Soln (100units/ml) SC SCH ×4 (06:55→22:22)
[2019-08-11] MEDS: ACCU-CHEK COMFORT CURVE STRIP VI SCH ×4 (06:56→22:22)
[2019-08-11] MEDS ORDERED: FAMOTIDINE 20 MG TAB PO SCH ×2 (10:00)
[2019-08-11] MEDS ORDERED: SOD CHL 0.45% 1,000 ML IV SCH (10:30)
[2019-08-11] MEDS: HYDROcodone-ACET 5/325MG TAB PO PRN ×2 (10:38→17:27)
[2019-08-11] MEDS: cefTRIAXone 1GM/50ML D5W 50 ML IV SCH (10:39)
[2019-08-11] MEDS: PANTOPRAZOLE 40 MG TAB PO SCH (10:39)
[2019-08-11] MEDS: TICAGRELOR 90 MG TAB PO SCH ×2 (10:39→22:20)
[2019-08-11] MEDS: AZITHROMYCIN 500MG/ 250ML 250 ML IV SCH (10:39)
[2019-08-11] MEDS: ASPirin-EC 81 mg tab PO SCH (10:39)
[2019-08-11] MEDS ORDERED: ENOXAPARIN SOD 100 MG/1 ML SYRINGE SC ONE (11:00)
[2019-08-11] MEDS: SODIUM CHLORIDE 0.9% 1,000 ML IV SCH ×2 (12:21→20:47)
[2019-08-11] MEDS: MORPHINE SULF INJ 2 MG/ML SYRINGE 1ML IV PRN ×2 (12:58→22:22)
[2019-08-11 16:44] LABS: Urine WBC None Seen /hpf (0 - 3)
[2019-08-11 17:14] LABS: Urine Bacteria FEW /hpf (None Seen); Urine Blood 2+ /uL (Negative); Urine Mucus FEW (None Seen); Urine Specific Gravity 1.013 (1.001-1.035)
[2019-08-11 17:15] LABS: Protein, Urine 607.1 mg/dL (0.0-11.9)
[2019-08-11] MEDS: ATORVASTATIN 20 MG TAB PO SCH (22:20)
[2019-08-11] MEDS: DOXYCYCLINE 100MG/250ML 250 ML IV SCH (22:20)
[2019-08-11] MEDS: METOPROLOL TARTRATE 25 MG TAB PO SCH (22:21)
[2019-08-12 05:43] LABS: Basophils # (auto) 0.1 uL; Basophils % (auto) 0.6 % (0.0-2.0); Eosinophils # (auto) 0.3 uL; Eosinophils % (auto) 2.1 % (0.0-7.0); Hematocrit 27.7 % (41.0-53.0); Hemoglobin 9.4 g/dL (13.5-17.5); Lymphocytes # (auto) 1.5 uL; Lymphocytes % (auto) 10.8 % (10.0-50.0); Mean Corpuscular Hemoglobin 29.4 pg (28.0-32.0); Mean Corpuscular Hgb Conc. 34.1 g/dL (32.0-36.0); Mean Corpuscular Volume 86.3 fL (80.0-100.0); Monocytes # (auto) 1.6 uL; Monocytes % (auto) 11.1 % (0.0-12.0); Neutrophils # (auto) 10.8 uL; Neutrophils % (auto) 75.4 % (37.0-80.0); Platelet Count (auto) 187 10^3/uL (140-450); Red Blood Cells 3.21 10^6/uL (4.5-5.90); Red Cell Distribution Width 15.5 % (11.8-14.3); White Blood Cell 14.3 10^3/uL (4.4-10.8)
[2019-08-12 06:00] LABS: INR 1.01 (0.9-1.15); Partial Thromboplastin Time 32.9 sec (23.64-32.05)
[2019-08-12 06:06] LABS: Calcium 7.7 mg/dL (8.5-10.1); Potassium 4.9 mmol/L (3.5-5.1); Uric Acid 8.2 mg/dL (3.5-7.2)
[2019-08-12 06:12] LABS: BUN/Creatinine Ratio 14.9
[2019-08-12] MEDS: LEVOTHYROXINE SODIUM 50 MCG TAB PO SCH (06:19)
[2019-08-12] MEDS: SODIUM CHLORIDE 0.9% 1,000 ML IV SCH ×2 (06:19→16:10)
[2019-08-12] MEDS: ACCU-CHEK COMFORT CURVE STRIP VI SCH ×4 (06:20→21:27)
[2019-08-12] MEDS: InsuLIN REG 1unit/0.01ml Soln (100units/ml) SC SCH ×4 (06:20→21:26)
[2019-08-12] MEDS: HYDROcodone-ACET 5/325MG TAB PO PRN (06:36)
[2019-08-12] MEDS: IPRATROPIUM BROM 0.5 MG/2.5ML INH SOL NEB SCH ×3 (06:44→19:36)
[2019-08-12] MEDS: ALBUTEROL SULF 2.5 MG/0.5ML(0.5%) NEB SOLN NEB SCH ×3 (06:44→19:35)
[2019-08-12] MEDS: ENOXAPARIN SOD 100 MG/1 ML SYRINGE SC SCH (09:46)
[2019-08-12] MEDS: METOPROLOL TARTRATE 25 MG TAB PO SCH ×2 (10:00→21:26)
[2019-08-12] MEDS: ASPirin-EC 81 mg tab PO SCH (10:00)
[2019-08-12] MEDS: cefTRIAXone 1GM/50ML D5W 50 ML IV SCH (10:00)
[2019-08-12] MEDS: TICAGRELOR 90 MG TAB PO SCH ×2 (10:00→21:25)
[2019-08-12] MEDS: PANTOPRAZOLE 40 MG TAB PO SCH (10:01)
[2019-08-12] MEDS: DOXYCYCLINE 100MG/250ML 250 ML IV SCH ×2 (11:05→21:25)
--- NOTE | 2019-08-12 11:26 | NUR ---
Respiratory note: Unable to give scheduled 1200 medneb tx, pt not in room. Will return for next scheduled tx.
[2019-08-12] MEDS ORDERED: LIDOCAINE 2%HCL (LOCAL ANESTH.) INJ 20ML MDV ONE (13:02)
[2019-08-12] MEDS ORDERED: IOHEXOL 350 MG/ML 100ML IJ ONE (13:02)
[2019-08-12] MEDS ORDERED: ANGIOMAX 250 MG VIAL IV ONE (13:34)
[2019-08-12] MEDS ORDERED: SODIUM CHL 0.9% 50 ML ONE (13:35)
[2019-08-12] MEDS ORDERED: MIDAZOLAM HCL 1MG/1ML-2 ML VIAL ONE (13:35)
[2019-08-12] MEDS ORDERED: fentaNYL CITRATE 100 MCG/2 ML VL ONE (13:35)
--- NOTE | 2019-08-12 13:45 | NUR ---
Discharge planning per consult, patient has orders for a hospice consult with [facility]. Referral was faxed to [facility], placed a follow up call, spoke with Viviana and was advised that they will accept patient on discharge. She presented to the hospital, spoke with nurse Oliveros in ER and patient. Patient advised he was being admitted and had opted to have a heart cath, but agreed to services on discharge. Addendum: 08/12/19 at 1348 by TIM CASTRO Amended: Links added.
[2019-08-12] MEDS ORDERED: IODIXANOL 320MG/ML 100ML BTL IV ONE (14:02)
--- NOTE | 2019-08-12 14:10 | NUR ---
RECEIVED PT FROM [employer] [employer] AT 1400 FROM [facility]. PT HAS A RIGHT FEMORAL DRESSING IN PLACE THAT IS CLEAN AND DRY. NO OBSERVATION OF BLEEDING NOTED. PT IS COMFORTABLE IN BED WITH 2 L/NC. NO DISTRESS NOTED. PTS BED IS LOCKED AND IN THE LOWEST POSITION WITH 2 RAILS UP IN POSITION
[2019-08-12 16:28] VITALS: BP 149/77
[2019-08-12] MEDS ORDERED: OMEP20TA PO (18:47)
[2019-08-12] MEDS ORDERED: TICA90TA PO (18:47)
[2019-08-12] MEDS ORDERED: CLOP75TA28 PO (18:47)
[2019-08-12 20:00] VITALS: BP 142/77
[2019-08-12] MEDS: ATORVASTATIN 20 MG TAB PO SCH (21:25)
[2019-08-12 21:40] VITALS: BP 142/77
[2019-08-13] VITALS (7 sets, daily range): BP systolic 126–153; BP diastolic 64–75
[2019-08-13] MEDS: SODIUM CHLORIDE 0.9% 1,000 ML IV SCH ×3 (02:29→22:45)
[2019-08-13] MEDS: HYDROcodone-ACET 5/325MG TAB PO PRN ×3 (05:15→20:53)
--- NOTE | 2019-08-13 05:16 | NUR ---
BACK PAIN 7/10 PATIENT REPORTS BACK PAIN 7/10 WILL ADMINISTER PAIN MEDICATION PER MD ORDERS ON eMAR.
[2019-08-13 05:21] LABS: Basophils # (auto) 0.1 uL; Basophils % (auto) 0.8 % (0.0-2.0); Eosinophils # (auto) 0.2 uL; Eosinophils % (auto) 1.5 % (0.0-7.0); Hematocrit 27.4 % (41.0-53.0); Lymphocytes # (auto) 1.5 uL; Lymphocytes % (auto) 12.9 % (10.0-50.0); Mean Corpuscular Hemoglobin 28.8 pg (28.0-32.0); Mean Corpuscular Hgb Conc. 32.9 g/dL (32.0-36.0); Mean Corpuscular Volume 87.7 fL (80.0-100.0); Monocytes # (auto) 1.2 uL; Monocytes % (auto) 10.4 % (0.0-12.0); Neutrophils # (auto) 8.7 uL; Neutrophils % (auto) 74.4 % (37.0-80.0); Nucleated Red Blood Cells % 0.1 %; Platelet Count (auto) 210 10^3/uL (140-450); Red Blood Cells 3.12 10^6/uL (4.5-5.90); Red Cell Distribution Width 15.8 % (11.8-14.3); White Blood Cell 11.7 10^3/uL (4.4-10.8)
[2019-08-13 05:39] LABS: BUN/Creatinine Ratio 17.3; Calcium 7.7 mg/dL (8.5-10.1)
[2019-08-13] MEDS: IPRATROPIUM BROM 0.5 MG/2.5ML INH SOL NEB SCH ×2 (06:42→11:46)
[2019-08-13] MEDS: ALBUTEROL SULF 2.5 MG/0.5ML(0.5%) NEB SOLN NEB SCH ×2 (06:42→11:46)
[2019-08-13] MEDS: LEVOTHYROXINE SODIUM 50 MCG TAB PO SCH (07:02)
[2019-08-13] MEDS: InsuLIN REG 1unit/0.01ml Soln (100units/ml) SC SCH ×4 (07:11→21:33)
[2019-08-13] MEDS: ACCU-CHEK COMFORT CURVE STRIP VI SCH ×4 (07:11→21:32)
--- NOTE | 2019-08-13 07:35 | NUR ---
Opening Shift Note Assumed care of patient, awake and alert. No S/S of distress/SOB or pain. For safety the bed is locked and in the lowest position with 2 side rails up in position. Instructed on POC and to call for assist PRN, will continue to monitor for changes in patients status.
[2019-08-13] MEDS: cefTRIAXone 1GM/50ML D5W 50 ML IV SCH (09:29)
[2019-08-13] MEDS: ASPirin-EC 81 mg tab PO SCH (09:29)
[2019-08-13] MEDS: ENOXAPARIN SOD 100 MG/1 ML SYRINGE SC SCH (09:29)
[2019-08-13] MEDS: PANTOPRAZOLE 40 MG TAB PO SCH (09:30)
[2019-08-13] MEDS: METOPROLOL TARTRATE 25 MG TAB PO SCH ×2 (09:30→21:29)
[2019-08-13] MEDS: TICAGRELOR 90 MG TAB PO SCH ×2 (10:10→21:29)
[2019-08-13] MEDS: DOXYCYCLINE 100MG/250ML 250 ML IV SCH (10:45)
--- NOTE | 2019-08-13 15:57 | NUR ---
Discharge planning per consult. Patient has orders for [facility] program. Received a follow up call from Holly (shelter case manager at [facility]) and she advised that she was processing the order with [facility] and that he may need home health upon discharge and if so to send that referral to [facility]. She will be by tomorrow to encounter patient; she advised she came today but patient was in a procedure. She will try to ensure they have updated demographic information on patient and hopefully he will take part in this program in an effort to reduce hospitalizations. Addendum: 08/15/19 at 1819 by TIM CASTRO Per shelter case manager Holly, patient has agreed to go home with [facility] and be followed by their program to reduce hospital encounters. Patient will be seen by [facility] within 24-48 hours upon discharge. Please contact [facility] at [phone] when this patient is ready to discharge.
--- NOTE | 2019-08-13 19:30 | NUR ---
Opening Shift Note Assumed care of patient, awake, AAOx4. No S/S of distress/SOB or pain. On 4L oxygen via nasal cannula, ambulatory. Bed in lowest locked position, side rails up x2, call light within reach. Instructed on POC and to call for assist PRN, will continue to monitor for changes Q1hr and PRN.
[2019-08-13] MEDS: ATORVASTATIN 20 MG TAB PO SCH (21:30)
[2019-08-14] VITALS (7 sets, daily range): BP systolic 142–157; BP diastolic 74–84
[2019-08-14 06:09] LABS: BUN/Creatinine Ratio 16.5; Calcium 7.9 mg/dL (8.5-10.1); Potassium 5.2 mmol/L (3.5-5.1)
[2019-08-14] MEDS: LEVOTHYROXINE SODIUM 50 MCG TAB PO SCH (06:32)
[2019-08-14] MEDS: ACCU-CHEK COMFORT CURVE STRIP VI SCH ×4 (06:33→22:07)
[2019-08-14] MEDS: InsuLIN REG 1unit/0.01ml Soln (100units/ml) SC SCH ×4 (06:33→22:08)
[2019-08-14] MEDS: ALBUTEROL SULF 2.5 MG/0.5ML(0.5%) NEB SOLN NEB SCH ×3 (08:25→18:32)
[2019-08-14] MEDS: IPRATROPIUM BROM 0.5 MG/2.5ML INH SOL NEB SCH ×3 (08:25→18:32)
[2019-08-14] MEDS: SODIUM CHLORIDE 0.9% 1,000 ML IV SCH ×3 (08:45→18:48)
[2019-08-14] MEDS: ENOXAPARIN SOD 100 MG/1 ML SYRINGE SC SCH ×2 (10:00→10:08)
[2019-08-14] MEDS: ASPirin-EC 81 mg tab PO SCH (10:08)
[2019-08-14] MEDS: PANTOPRAZOLE 40 MG TAB PO SCH (10:08)
[2019-08-14] MEDS: TICAGRELOR 90 MG TAB PO SCH ×2 (10:08→22:19)
[2019-08-14] MEDS: METOPROLOL TARTRATE 25 MG TAB PO SCH ×2 (10:09→22:04)
--- NOTE | 2019-08-14 11:58 | NUR ---
Nutrition Assessment Notes please see attached link for complete assessment Est. Needs based on ABW (101 kg): 7055-2515 kcal (23-25 kcal/kgBW), 80-101 gms pro (0.8-1.0 gms/kgBW r/t elev RFT CKD). Will continue to monitor pertinent labs and reassess nutrient need prn Addendum: 08/14/19 at [address] Amended: Links added.
[2019-08-14] MEDS: PROMETHAZINE-DM 5 ML ORAL SYRUP PO PRN ×2 (12:13→23:22)
--- NOTE | 2019-08-14 13:25 | NUR ---
Midline Placement: Patient educated on need for midline placement. All risks and benefits explained and all questions and concerns addresses prior to procedure. 18g/10cm midline inserted via right basilic vein using Ultrasound. Sterile technique utilized. Blood return obtained from lumen and flushed easily with NS using proper technique. Midline secured with saline lock; biodisc and occlusive dressing applied. Primary RN notified. Midline lot #[id number]
--- NOTE | 2019-08-14 19:30 | NUR ---
Opening Shift Note Assumed care of patient, awake, AA&Ox4. No S/S of distress/SOB or pain. On 4L oxygen via nasal cannula. Ambulatory Q4hr. Midline to LESLY intact and asymptomatic. Bed in lowest locked position, side rails up x2, call light within reach. Instructed on POC and to call for assist PRN, will continue to monitor for changes Q1hr and PRN.
[2019-08-14] MEDS: ATORVASTATIN 20 MG TAB PO SCH (22:03)
[2019-08-14] MEDS: HYDROcodone-ACET 5/325MG TAB PO PRN (23:22)
[2019-08-15 05:08] VITALS: BP 140/75
[2019-08-15] MEDS: InsuLIN REG 1unit/0.01ml Soln (100units/ml) SC SCH ×4 (06:25→22:00)
[2019-08-15] MEDS: ACCU-CHEK COMFORT CURVE STRIP VI SCH ×4 (06:25→22:00)
[2019-08-15] MEDS: LEVOTHYROXINE SODIUM 50 MCG TAB PO SCH (06:25)
[2019-08-15 06:33] LABS: Calcium 8.2 mg/dL (8.5-10.1)
[2019-08-15] MEDS: ALBUTEROL SULF 2.5 MG/0.5ML(0.5%) NEB SOLN NEB SCH ×3 (06:44→18:40)
[2019-08-15] MEDS: IPRATROPIUM BROM 0.5 MG/2.5ML INH SOL NEB SCH ×3 (06:44→18:40)
[2019-08-15 07:35] VITALS: BP 146/77
[2019-08-15 09:00] VITALS: BP 147/81
--- NOTE | 2019-08-15 09:18 | NUR ---
PAGED DR BURGESS TO NOTIFY HIM OF BUN 86.
[2019-08-15] MEDS: SODIUM CHLORIDE 0.9% 1,000 ML IV SCH (09:19)
[2019-08-15] MEDS: TICAGRELOR 90 MG TAB PO SCH ×2 (09:38→22:34)
[2019-08-15] MEDS: ASPirin-EC 81 mg tab PO SCH (09:38)
[2019-08-15] MEDS: PANTOPRAZOLE 40 MG TAB PO SCH (09:38)
[2019-08-15] MEDS: METOPROLOL TARTRATE 25 MG TAB PO SCH ×2 (09:38→22:34)
[2019-08-15] MEDS: HYDROcodone-ACET 5/325MG TAB PO PRN ×2 (09:39→20:23)
[2019-08-15] MEDS: PROMETHAZINE-DM 5 ML ORAL SYRUP PO PRN ×2 (09:39→20:23)
[2019-08-15] MEDS ORDERED: BUMETANIDE 2.5mg/10ml (0.25 mg/ml) INJ IV ONE (09:45)
[2019-08-15] MEDS: SODIUM BICARBONATE 50ML VIAL 100 ML in SOD CHL 0.45% 1,000 ML IV SCH (10:03)
[2019-08-15 13:00] VITALS: BP 142/81
[2019-08-15 17:16] VITALS: BP 148/79
--- NOTE | 2019-08-15 19:00 | NUR ---
Opening Shift Note Assumed care of patient, awake and alert. No S/S of distress/SOB or pain. Instructed on POC and to call for assist PRN, will continue to monitor for changes Q1hr and PRN.
[2019-08-15 21:00] VITALS: BP 142/76
[2019-08-15] MEDS: ATORVASTATIN 20 MG TAB PO SCH (22:34)
[2019-08-16] MEDS: PROMETHAZINE-DM 5 ML ORAL SYRUP PO PRN ×2 (02:27→22:02)
[2019-08-16 04:30] VITALS: BP 139/81
[2019-08-16 05:47] LABS: Basophils # (auto) 0.1 uL; Basophils % (auto) 0.7 % (0.0-2.0); Eosinophils # (auto) 0.1 uL; Eosinophils % (auto) 0.8 % (0.0-7.0); Hematocrit 28.4 % (41.0-53.0); Hemoglobin 9.3 g/dL (13.5-17.5); Lymphocytes # (auto) 1.3 uL; Lymphocytes % (auto) 8.8 % (10.0-50.0); Mean Corpuscular Hemoglobin 28.5 pg (28.0-32.0); Mean Corpuscular Hgb Conc. 32.9 g/dL (32.0-36.0); Mean Corpuscular Volume 86.7 fL (80.0-100.0); Monocytes # (auto) 1.6 uL; Monocytes % (auto) 11.2 % (0.0-12.0); Neutrophils # (auto) 11.6 uL; Neutrophils % (auto) 78.5 % (37.0-80.0); Platelet Count (auto) 308 10^3/uL (140-450); Red Blood Cells 3.28 10^6/uL (4.5-5.90); Red Cell Distribution Width 15.7 % (11.8-14.3); White Blood Cell 14.7 10^3/uL (4.4-10.8)
[2019-08-16 06:09] LABS: Albumin 1.6 g/dL (3.4-5.0); Calcium 8.3 mg/dL (8.5-10.1)
[2019-08-16 06:12] LABS: BUN/Creatinine Ratio 16.5; Bilirubin, Total 0.3 mg/dL (0.2-1.0); Phosphorus 8.1 mg/dL (2.5-4.90); Total Protein 6.2 g/dL (6.4-8.2)
[2019-08-16] MEDS: ALBUTEROL SULF 2.5 MG/0.5ML(0.5%) NEB SOLN NEB SCH ×3 (06:14→18:22)
[2019-08-16] MEDS: IPRATROPIUM BROM 0.5 MG/2.5ML INH SOL NEB SCH ×3 (06:14→18:22)
--- NOTE | 2019-08-16 06:23 | NUR ---
Oksana Sun [employer] conservation laborer called stating patient has an elevated K+ 5.6 [address] P[address] Brown awaiting orders. Will continue to monitor. Addendum: 08/16/19 at 0630 by PONCE DUKES RN RN Correction BUN 92.
[2019-08-16 06:25] LABS: Potassium 5.6 mmol/L (3.5-5.1)
[2019-08-16] MEDS: LEVOTHYROXINE SODIUM 50 MCG TAB PO SCH (06:43)
[2019-08-16] MEDS: InsuLIN REG 1unit/0.01ml Soln (100units/ml) SC SCH ×4 (06:43→22:00)
[2019-08-16] MEDS: ACCU-CHEK COMFORT CURVE STRIP VI SCH ×4 (06:43→22:02)
[2019-08-16 07:33] VITALS: BP 146/77
[2019-08-16] MEDS: SODIUM BICARBONATE 50ML VIAL 100 ML in SOD CHL 0.45% 1,000 ML IV SCH (08:16)
[2019-08-16 09:00] VITALS: BP 124/74
[2019-08-16] MEDS: PANTOPRAZOLE 40 MG TAB PO SCH (09:48)
[2019-08-16] MEDS: ASPirin-EC 81 mg tab PO SCH (09:48)
[2019-08-16] MEDS: TICAGRELOR 90 MG TAB PO SCH ×2 (09:48→22:01)
[2019-08-16] MEDS: METOPROLOL TARTRATE 25 MG TAB PO SCH ×2 (09:49→22:02)
--- NOTE | 2019-08-16 11:15 | NUR ---
DR RICHARDS AT BEDSIDE DISCUSSED HEMODIALYSIS WITH PATIENT. PATIENT VERBALIZED UNDERSTANDING. IR CONSULT PLACED FOR HEMODIALYSIS CATHETER. ONCE CATHETER IS PLACED HE WILL PLACE ORDERS FOR HEMODIALYSIS.
[2019-08-16] MEDS ORDERED: SEVELAMER 800 MG TAB PO ONE (11:45)
[2019-08-16 13:00] VITALS: BP 137/75
[2019-08-16] MEDS: HYDROcodone-ACET 5/325MG TAB PO PRN ×2 (14:11→22:01)
[2019-08-16] MEDS: SODIUM ZIRCONIUM CYCL 10 GM PAK PO SCH ×2 (15:24→22:00)
[2019-08-16 17:00] VITALS: BP 137/76
[2019-08-16] MEDS: Glucerna Carbsteady SHAKE Stawberry 8oz PO SCH (18:24)
[2019-08-16 18:59] LABS: BUN/Creatinine Ratio 16.5; Calcium 8.1 mg/dL (8.5-10.1); Potassium 5.3 mmol/L (3.5-5.1)
--- NOTE | 2019-08-16 19:10 | NUR ---
Opening Shift Note Assumed care of patient, awake and alert. No S/S of distress/SOB or pain. Safety measures in place bed in lowest position, side rails x2 up, and call light within reach. Instructed on POC and to call for assist PRN, will continue to monitor for changes Q1hr and PRN.
--- NOTE | 2019-08-16 19:40 | NUR ---
Laboratory called patient has critical BUN 92, aware. Will continue to monitor.
[2019-08-16] MEDS: ATORVASTATIN 20 MG TAB PO SCH (22:01)
[2019-08-16 22:13] VITALS: BP 128/68
[2019-08-17] VITALS (8 sets, daily range): BP systolic 121–146; BP diastolic 62–77
[2019-08-17 05:30] LABS: Basophils # (auto) 0.1 uL; Basophils % (auto) 0.7 % (0.0-2.0); Eosinophils # (auto) 0.2 uL; Eosinophils % (auto) 1.8 % (0.0-7.0); Hematocrit 26.2 % (41.0-53.0); Hemoglobin 8.8 g/dL (13.5-17.5); Lymphocytes # (auto) 1.5 uL; Lymphocytes % (auto) 11.7 % (10.0-50.0); Mean Corpuscular Hemoglobin 28.9 pg (28.0-32.0); Mean Corpuscular Hgb Conc. 33.6 g/dL (32.0-36.0); Monocytes # (auto) 1.6 uL; Monocytes % (auto) 12.2 % (0.0-12.0); Neutrophils # (auto) 9.4 uL; Neutrophils % (auto) 73.6 % (37.0-80.0); Nucleated Red Blood Cells % 0.1 %; Platelet Count (auto) 295 10^3/uL (140-450); Red Blood Cells 3.04 10^6/uL (4.5-5.90); Red Cell Distribution Width 15.5 % (11.8-14.3); White Blood Cell 12.7 10^3/uL (4.4-10.8)
[2019-08-17] MEDS: SODIUM BICARBONATE 50ML VIAL 100 ML in SOD CHL 0.45% 1,000 ML IV SCH (05:30)
[2019-08-17] MEDS: SODIUM ZIRCONIUM CYCL 10 GM PAK PO SCH ×3 (05:57→21:53)
--- NOTE | 2019-08-17 06:13 | NUR ---
Chemistry called with critical lab value for BUN 94. Will notify physician and await orders. Will continue to monitor.
[2019-08-17] MEDS: InsuLIN REG 1unit/0.01ml Soln (100units/ml) SC SCH ×4 (06:34→21:54)
[2019-08-17] MEDS: ACCU-CHEK COMFORT CURVE STRIP VI SCH ×4 (06:34→21:54)
[2019-08-17] MEDS: LEVOTHYROXINE SODIUM 50 MCG TAB PO SCH (06:34)
[2019-08-17 06:37] LABS: Anion Gap 12 (5-15); Carbon Dioxide 21 mmol/L (21-32); Chloride 100 mmol/L (98-107); Glucose 188 mg/dL (74-106); Potassium 4.8 mmol/L (3.5-5.1); Sodium 133 mmol/L (136-145)
[2019-08-17 06:38] LABS: Alanine Aminotransferase 36 U/L (16-61); Albumin 1.5 g/dL (3.4-5.0); Alkaline Phosphatase 189 U/L (45-117); Aspartate Aminotransferase 29 U/L (15-37); BUN/Creatinine Ratio 17.1; Bilirubin, Total 0.3 mg/dL (0.2-1.0); Blood Urea Nitrogen 94 mg/dL (7-18); Calcium 7.7 mg/dL (8.5-10.1); GFR African American 14 mL/min; GFR Non-African American 11 mL/min; Total Protein 5.7 g/dL (6.4-8.2)
[2019-08-17] MEDS: ALBUTEROL SULF 2.5 MG/0.5ML(0.5%) NEB SOLN NEB SCH ×4 (07:21→23:34)
[2019-08-17] MEDS: IPRATROPIUM BROM 0.5 MG/2.5ML INH SOL NEB SCH ×4 (07:21→23:34)
[2019-08-17] MEDS: Glucerna Carbsteady SHAKE Stawberry 8oz PO SCH ×3 (08:00→17:40)
[2019-08-17] MEDS: METOPROLOL TARTRATE 25 MG TAB PO SCH ×2 (09:41→21:53)
[2019-08-17] MEDS: PANTOPRAZOLE 40 MG TAB PO SCH (09:41)
[2019-08-17] MEDS: ASPirin-EC 81 mg tab PO SCH (09:41)
[2019-08-17] MEDS: TICAGRELOR 90 MG TAB PO SCH ×2 (09:41→21:52)
[2019-08-17] MEDS: HYDROcodone-ACET 5/325MG TAB PO PRN (14:06)
--- NOTE | 2019-08-17 16:00 | NUR ---
PT REFUSED P.T. X 2.
[2019-08-17] MEDS: SEVELAMER 800 MG TAB PO SCH (17:40)
[2019-08-17] MEDS: ATORVASTATIN 20 MG TAB PO SCH (21:53)
[2019-08-17] MEDS: PROMETHAZINE-DM 5 ML ORAL SYRUP PO PRN (21:54)
[2019-08-18] VITALS (7 sets, daily range): BP systolic 109–146; BP diastolic 55–77
[2019-08-18] MEDS: SODIUM BICARBONATE 50ML VIAL 100 ML in SOD CHL 0.45% 1,000 ML IV SCH ×2 (03:17→21:53)
[2019-08-18] MEDS: PROMETHAZINE-DM 5 ML ORAL SYRUP PO PRN ×3 (03:55→21:53)
[2019-08-18 05:27] LABS: Hematocrit 27.6 % (41.0-53.0); Hemoglobin 9.4 g/dL (13.5-17.5); Mean Corpuscular Hemoglobin 29.6 pg (28.0-32.0); Mean Corpuscular Hgb Conc. 34.2 g/dL (32.0-36.0); Mean Corpuscular Volume 86.6 fL (80.0-100.0); Platelet Count (auto) 316 10^3/uL (140-450); Red Blood Cells 3.19 10^6/uL (4.5-5.90); Red Cell Distribution Width 15.4 % (11.8-14.3); White Blood Cell 10.2 10^3/uL (4.4-10.8)
[2019-08-18] MEDS: SODIUM ZIRCONIUM CYCL 10 GM PAK PO SCH ×3 (05:33→23:50)
[2019-08-18 05:37] LABS: Band Neutrophils % (manual) 0; Basophils % (manual) 0 (0.0-2.0); Blast Cells 0; Eosinophils % (manual) 0 (0-7); Metamyelocytes % 0; Myelocytes % 0; Promyelocytes % 0; Reactive Lymphocytes 0
[2019-08-18 05:46] LABS: Albumin 1.5 g/dL (3.4-5.0); Calcium 7.9 mg/dL (8.5-10.1); Potassium 4.4 mmol/L (3.5-5.1)
[2019-08-18 05:48] LABS: BUN/Creatinine Ratio 17.8
[2019-08-18 05:50] LABS: Bilirubin, Total 0.3 mg/dL (0.2-1.0); Total Protein 5.7 g/dL (6.4-8.2)
--- NOTE | 2019-08-18 05:55 | NUR ---
Joshua from Chemistry called patient has improved critical BUN 90. Physician aware. Will continue to monitor.
[2019-08-18] MEDS: ACCU-CHEK COMFORT CURVE STRIP VI SCH ×4 (06:36→21:36)
[2019-08-18] MEDS: InsuLIN REG 1unit/0.01ml Soln (100units/ml) SC SCH ×4 (06:37→21:36)
--- NOTE | 2019-08-18 06:37 | NUR ---
Patient refused insulin for a BS of 159. Patient educated on the risk and benefits. Patient verbalized understanding. Will continue to monitor. Will inform dayshift RN.
[2019-08-18 06:44] LABS: Lymphocytes % (manual) 9 (10.0-50.0); Monocytes % (manual) 14 (0-12)
[2019-08-18] MEDS: LEVOTHYROXINE SODIUM 50 MCG TAB PO SCH (06:48)
--- NOTE | 2019-08-18 07:14 | NUR ---
PAGED DR RICHARDS TO NOTIFY HIM OF KIDNEY FUNCTION IMPROVING.
[2019-08-18] MEDS: IPRATROPIUM BROM 0.5 MG/2.5ML INH SOL NEB SCH ×3 (07:23→19:08)
[2019-08-18] MEDS: ALBUTEROL SULF 2.5 MG/0.5ML(0.5%) NEB SOLN NEB SCH ×3 (07:23→19:08)
[2019-08-18] MEDS: SEVELAMER 800 MG TAB PO SCH ×3 (08:00→17:52)
[2019-08-18] MEDS: Glucerna Carbsteady SHAKE Stawberry 8oz PO SCH ×2 (08:00→12:20)
[2019-08-18] MEDS: TICAGRELOR 90 MG TAB PO SCH ×2 (10:00→21:33)
[2019-08-18] MEDS: PANTOPRAZOLE 40 MG TAB PO SCH (10:00)
[2019-08-18] MEDS: ASPirin-EC 81 mg tab PO SCH (10:00)
[2019-08-18] MEDS: METOPROLOL TARTRATE 25 MG TAB PO SCH ×2 (10:00→21:34)
[2019-08-18 10:27] LABS: INR 1.08 (0.9-1.15)
--- NOTE | 2019-08-18 11:29 | NUR ---
PAGED DR RICHARDS BECAUSE PATIENT WANTS TO WAIT ANOTHER DAY TO SEE IF LABS IMPROVE.
[2019-08-18 11:49] LABS: Hepatitis B Surface Antigen Negative (Negative); Hepatitis C Antibody Negative (Negative)
--- NOTE | 2019-08-18 12:00 | NUR ---
SPOKE TO DR RICHARDS INFORMED HIM THAT PATIENT WANTS TO WAIT ANOTHER DAY TO SEE IF LABS IMPROVE. DR RICHARDS SAID THAT WAS FINE.
--- NOTE | 2019-08-18 12:01 | NUR ---
SPOKE TO HAKAN Huerta IN RADIOLOGY INFORMED HER THAT DR RICHARDS WANTS A [facility] DIALYSIS CATHETER PLACED TOMORROW IF LABS DON'T IMPROVE. SHE VERBALIZED UNDERSTANDING SAID SHE INFORM DR LI AND TO KEEP PATIENT NPO AFTER MIDNIGHT.
--- NOTE | 2019-08-18 12:10 | NUR ---
SPOKE TO DR LI RE: DR RICHARDS'S REQUEST FOR TUNNELED CATHETER PLACEMENT. ALSO INFORMED MD OF PATIENT'S CHOICE TO WAIT UNTIL TOMORROW TO SEE IF RENAL LABS IMPROVE. COAGS NOTED. DANIEL IN OUTPATIENT CLERK INFORMED OF SAME.
[2019-08-18] MEDS: BUMETANIDE 2.5mg/10ml (0.25 mg/ml) INJ IV SCH (12:27)
[2019-08-18] MEDS: Nepro With Carbsteady ButterPecan 8oz Carton PO SCH (17:52)
[2019-08-18] MEDS: HYDROcodone-ACET 5/325MG TAB PO PRN (18:11)
--- NOTE | 2019-08-18 19:25 | NUR ---
Received report from Laurel ANNsenior windows systems administrator catheter placement cancelled per patient request, Julian coelho, spoke to patient and agreed to continue to monitor labs tomorrow. Pt does not want dialysis at this time, refused cath placement today, wants to wait a couple of days to see lab trend, see if they continue to improve. Per RN may be following up outpatient
--- NOTE | 2019-08-18 20:00 | NUR ---
Opening Shift Note Assumed care of patient, awake and alert x4. No S/S of distress/SOB on 2L NC, or pain. Instructed on POC and to call for assistance PRN, will continue to monitor for changes Q1hr and PRN. Pt spoke to Dr. Jordan agreed to wait to see if renal labs continue to improve, hold off dialysis access insertion pending for now. Pt requested to wait a couple of days to see if they improve. May follow up outpatient per report from day nurse Laurel.
[2019-08-18] MEDS: ATORVASTATIN 20 MG TAB PO SCH (21:34)
[2019-08-18] MEDS: INSULIN LANTUS (GLARGINE) 1 /0.01ml (100units/ml) SC SCH (21:35)
--- NOTE | 2019-08-18 21:36 | NUR ---
Refused Lantus Pt refused lantus, worried his blood sugar will drop since it has been well controlled without it, administered regular insulin as ordered. Will continue to monitor
[2019-08-19] VITALS (7 sets, daily range): BP systolic 118–136; BP diastolic 61–73
[2019-08-19] MEDS: PROMETHAZINE-DM 5 ML ORAL SYRUP PO PRN ×4 (05:31→23:47)
[2019-08-19] MEDS: SODIUM ZIRCONIUM CYCL 10 GM PAK PO SCH (05:31)
[2019-08-19] MEDS: LEVOTHYROXINE SODIUM 50 MCG TAB PO SCH (05:31)
[2019-08-19] MEDS: InsuLIN REG 1unit/0.01ml Soln (100units/ml) SC SCH ×4 (06:00→21:30)
[2019-08-19] MEDS: ACCU-CHEK COMFORT CURVE STRIP VI SCH ×4 (06:00→21:31)
--- NOTE | 2019-08-19 06:00 | NUR ---
Labs Informed laborer [employer] unable to draw from midline, tech to come back and draw patient.
[2019-08-19] MEDS: ALBUTEROL SULF 2.5 MG/0.5ML(0.5%) NEB SOLN NEB SCH ×3 (06:40→19:46)
[2019-08-19] MEDS: IPRATROPIUM BROM 0.5 MG/2.5ML INH SOL NEB SCH ×3 (06:41→19:46)
[2019-08-19 07:56] LABS: Hematocrit 29.8 % (41.0-53.0); Hemoglobin 9.9 g/dL (13.5-17.5); Mean Corpuscular Hemoglobin 28.5 pg (28.0-32.0); Mean Corpuscular Hgb Conc. 33.2 g/dL (32.0-36.0); Mean Corpuscular Volume 85.9 fL (80.0-100.0); Platelet Count (auto) 383 10^3/uL (140-450); Red Blood Cells 3.47 10^6/uL (4.5-5.90); Red Cell Distribution Width 15.5 % (11.8-14.3); White Blood Cell 10.5 10^3/uL (4.4-10.8)
[2019-08-19 08:00] LABS: Basophils % (manual) 0 (0.0-2.0); Blast Cells 0; Metamyelocytes % 0; Myelocytes % 0; Promyelocytes % 0; Reactive Lymphocytes 0
[2019-08-19] MEDS: Nepro With Carbsteady ButterPecan 8oz Carton PO SCH ×3 (08:00→18:00)
[2019-08-19 08:13] LABS: Albumin 1.5 g/dL (3.4-5.0); BUN/Creatinine Ratio 18.7; Calcium 7.6 mg/dL (8.5-10.1); Magnesium 1.9 mg/dL (1.6-2.6); Potassium 3.8 mmol/L (3.5-5.1)
[2019-08-19 08:16] LABS: Bilirubin, Total 0.3 mg/dL (0.2-1.0); Total Protein 5.9 g/dL (6.4-8.2)
[2019-08-19 08:31] LABS: Band Neutrophils % (manual) 1; Eosinophils % (manual) 5 (0-7); Lymphocytes % (manual) 20 (10.0-50.0); Monocytes % (manual) 3 (0-12)
[2019-08-19] MEDS: SEVELAMER 800 MG TAB PO SCH ×3 (08:31→18:31)
--- NOTE | 2019-08-19 08:49 | NUR ---
Critical Lab Received a call from the Lab at 0820hrs that the patient's BUN was 84. Dr. Neri is already aware of the BUN being elevated and expected it to start trending down as it is now. Previous BUN was 90. Will continue to monitor.
[2019-08-19] MEDS: TICAGRELOR 90 MG TAB PO SCH ×2 (10:12→21:29)
[2019-08-19] MEDS: METOPROLOL TARTRATE 25 MG TAB PO SCH ×2 (10:13→21:30)
[2019-08-19] MEDS: BUMETANIDE 2.5mg/10ml (0.25 mg/ml) INJ IV SCH (10:13)
[2019-08-19] MEDS: ASPirin-EC 81 mg tab PO SCH (10:13)
[2019-08-19] MEDS: PANTOPRAZOLE 40 MG TAB PO SCH (10:13)
--- NOTE | 2019-08-19 11:56 | NUR ---
Nutrition Follow-up Notes Wt.: 117.1 kg Pt was sleeping with no family by beside. per records pt s/p PTCA. pt with no distress noted. pt is currently on CCHO 60 gm renal std diet with nephro carb steady 1 carton tid with adequate PO of > 75% x 5 per RN doc Est. Needs based on ABW (101 kg): 6356-3584 kcal (23-25 kcal/kgBW), 80-101 gms pro (0.8-1.0 gms/kgBW r/t elev RFT CKD). Will continue to monitor pertinent labs and reassess nutrient need prn Labs: BUN 84 H, CREAT 4.49 H, GLU 182 H, CA 7.6 L, ALB 1.5 L. Skin: Atilio scale 20 low risk puncture to groin per RN doc GI: Pt has no BM reported per clinical documentation manager. PES: Decreased nutrient needs r.t adiposity aeb pt`s high BMI of 31.7 kgm2 Altered nutrition related lab values r/t current/chronic medical condition aeb elev RFT A1C, hyperglycemia, hypocalcemia, hyperkalemia and severe hypoalb Will continue to monitor PO intake, skin status, pertinent labs and weight trend. F/u in 3-5 days. Rec.: 1.) consider renal specific 80 gm protein 2 gm na long with current diet. 2) refer to CDE on DC. 3) consider prostat 1 packet bid as RFT improved. 4) continue curent plan of care
[2019-08-19] MEDS ORDERED: ERGOCALCIFEROL 50,000 UNIT(1.25MG) CAP PO SCH (12:15)
[2019-08-19] MEDS: DOXYCYCLINE 100MG/250ML 250 ML IV SCH (17:33)
--- NOTE | 2019-08-19 19:05 | NUR ---
OPENING NOTE-NOC SHIFT PATIENT IS ALERT AND ORIENTED X4 AND MAKES APPROPRIATE EYE CONTACT. PATIENT IS IN BED, BED IS LOCKED IN LOWEST POSITION. BEDSIDE TABLE WITHIN REACH, CALL LIGHT WITHIN REACH. DISCUSSED POC WITH PATIENT AND INSTRUCTED PATIENT TO CALL PRN; PATIENT VERBALIZED UNDERSTANDING. WILL CONTINUE TO MONITOR Q1H AND PRN.
[2019-08-19] MEDS: ATORVASTATIN 20 MG TAB PO SCH (21:29)
--- NOTE | 2019-08-19 21:30 | NUR ---
PATIENT REFUSED LANTUS. PATIENT STATES THAT HE DOES NOT WANT TO USE LANTUS BECAUSE HE DOES NOT USE IT AT HOME.
[2019-08-19] MEDS: INSULIN LANTUS (GLARGINE) 1 /0.01ml (100units/ml) SC SCH (21:31)
--- NOTE | 2019-08-19 23:50 | NUR ---
PATIENT PRESENTS WITH COUGH AND REQUESTS PRN MEDICATION. WILL ADMINISTER MEDICATION PER MD ORDERS ON eMAR.
[2019-08-20] VITALS (7 sets, daily range): BP systolic 123–144; BP diastolic 71–85
[2019-08-20] MEDS: HYDROcodone-ACET 5/325MG TAB PO PRN ×3 (02:00→13:46)
--- NOTE | 2019-08-20 02:00 | NUR ---
PATIENT COMPLAINS OF HEADACHE AND BODY ACHES 6/10. WILL ADMINISTER PAIN MEDICATION PER MD ORDERS ON eMAR.
[2019-08-20] MEDS: DOXYCYCLINE 100MG/250ML 250 ML IV SCH ×2 (05:24→17:35)
[2019-08-20 06:07] LABS: BUN/Creatinine Ratio 20.2; Calcium 7.5 mg/dL (8.5-10.1); Magnesium 1.8 mg/dL (1.6-2.6); Potassium 3.8 mmol/L (3.5-5.1)
[2019-08-20 06:09] LABS: Basophils # (auto) 0.1 uL; Eosinophils # (auto) 0.5 uL; Hematocrit 27.6 % (41.0-53.0); Hemoglobin 9.1 g/dL (13.5-17.5); Lymphocytes # (auto) 1.9 uL; Lymphocytes % (auto) 16.4 % (10.0-50.0); Mean Corpuscular Hemoglobin 28.5 pg (28.0-32.0); Mean Corpuscular Hgb Conc. 32.8 g/dL (32.0-36.0); Monocytes # (auto) 1.1 uL; Monocytes % (auto) 9.2 % (0.0-12.0); Neutrophils # (auto) 8.2 uL; Neutrophils % (auto) 69.4 % (37.0-80.0); Platelet Count (auto) 370 10^3/uL (140-450); Red Blood Cells 3.17 10^6/uL (4.5-5.90); Red Cell Distribution Width 15.5 % (11.8-14.3); White Blood Cell 11.8 10^3/uL (4.4-10.8)
[2019-08-20] MEDS: IPRATROPIUM BROM 0.5 MG/2.5ML INH SOL NEB SCH ×3 (06:24→18:32)
[2019-08-20] MEDS: ALBUTEROL SULF 2.5 MG/0.5ML(0.5%) NEB SOLN NEB SCH ×3 (06:24→18:32)
--- NOTE | 2019-08-20 06:30 | NUR ---
RT AT BEDSIDE
[2019-08-20] MEDS: LEVOTHYROXINE SODIUM 50 MCG TAB PO SCH (06:59)
[2019-08-20] MEDS: InsuLIN REG 1unit/0.01ml Soln (100units/ml) SC SCH ×4 (06:59→22:05)
[2019-08-20] MEDS: ACCU-CHEK COMFORT CURVE STRIP VI SCH ×4 (07:00→22:06)
[2019-08-20] MEDS: PROMETHAZINE-DM 5 ML ORAL SYRUP PO PRN ×3 (07:00→22:24)
--- NOTE | 2019-08-20 07:35 | NUR ---
Opening Shift Note Assumed care of patient, awake and alert. No S/S of distress/SOB or pain. For safety patients bed is locked and in the lowest position with 2 side rails up. Instructed on POC and to call for assist PRN, will continue to monitor for changes.
[2019-08-20] MEDS: Nepro With Carbsteady ButterPecan 8oz Carton PO SCH ×3 (08:00→18:11)
[2019-08-20] MEDS: SEVELAMER 800 MG TAB PO SCH ×3 (09:24→18:11)
[2019-08-20] MEDS: METOPROLOL TARTRATE 25 MG TAB PO SCH ×2 (09:25→21:43)
[2019-08-20] MEDS: ASPirin-EC 81 mg tab PO SCH (09:26)
[2019-08-20] MEDS: PANTOPRAZOLE 40 MG TAB PO SCH (09:26)
[2019-08-20] MEDS: BUMETANIDE 2.5mg/10ml (0.25 mg/ml) INJ IV SCH (09:27)
[2019-08-20] MEDS: TICAGRELOR 90 MG TAB PO SCH ×2 (09:30→21:42)
--- NOTE | 2019-08-20 19:05 | NUR ---
OPENING NOTE- NOC SHIFT PATIENT IS ALERT AND ORIENTED AND MAKES APPROPRIATE EYE CONTACT. PATIENT IS SITTING UP IN BED, BED IS LOCKED IN LOWEST POSITION. BEDSIDE TABLE WITHIN REACH, CALL LIGHT WITHIN REACH. DISCUSSED POC WITH PATIENT AND INSTRUCTED PATIENT TO CALL PRN; PATIENT VERBALIZED UNDERSTANDING. PATIENT IS RECEIVING O2 VIA NC AT 4L. NO S/SX OF DISTRESS, SOB OR PAIN. WILL CONTINUE TO MONITOR Q1H AND PRN.
[2019-08-20] MEDS: ATORVASTATIN 20 MG TAB PO SCH (21:42)
[2019-08-20] MEDS: INSULIN LANTUS (GLARGINE) 1 /0.01ml (100units/ml) SC SCH (22:00)
--- NOTE | 2019-08-20 22:05 | NUR ---
PATIENT REFUSED LANTUS PATIENT STATES THAT HE DOES NOT WANT TO USE LANTUS BECAUSE HE IS AFRAID THAT HIS SUGAR WILL DROP TOO LOW. HE ALSO STATES THAT HE DOES NOT USE IT AT HOME. EDUCATED PATIENT REGARDING BENEFITS OF LANTUS AND THAT IT IS LONG ACTING. PATIENT STILL REFUSES MED.
--- NOTE | 2019-08-20 22:20 | NUR ---
PATIENT REQUEST COUGH MEDICATION WILL ADMINISTER PER MD ORDERS ON eMAR.
[2019-08-21] VITALS (7 sets, daily range): BP systolic 110–137; BP diastolic 65–75
--- NOTE | 2019-08-21 01:49 | NUR ---
ROUNDS PATIENT IS RESTING IN BED, BED IS LOCKED IN LOWEST POSITION. EYES CLOSED, CHEST RISE AND FALL IS EVEN AND UNLABORED. NO S/SX OF DISTRESS, SOB OR PAIN. CALL LIGHT IS WITHIN REACH. WILL CONTINUE TO MONITOR Q1H AND PRN.
[2019-08-21] MEDS: DOXYCYCLINE 100MG/250ML 250 ML IV SCH ×2 (05:17→17:10)
[2019-08-21] MEDS: LEVOTHYROXINE SODIUM 50 MCG TAB PO SCH (07:07)
[2019-08-21] MEDS: ACCU-CHEK COMFORT CURVE STRIP VI SCH ×4 (07:08→22:14)
[2019-08-21] MEDS: InsuLIN REG 1unit/0.01ml Soln (100units/ml) SC SCH ×4 (07:08→22:14)
[2019-08-21] MEDS: PROMETHAZINE-DM 5 ML ORAL SYRUP PO PRN ×3 (07:12→22:08)
[2019-08-21] MEDS: ALBUTEROL SULF 2.5 MG/0.5ML(0.5%) NEB SOLN NEB SCH ×3 (07:13→19:14)
[2019-08-21] MEDS: IPRATROPIUM BROM 0.5 MG/2.5ML INH SOL NEB SCH ×3 (07:13→19:13)
[2019-08-21 07:24] LABS: Basophils # (auto) 0.1 uL; Eosinophils # (auto) 0.5 uL; Eosinophils % (auto) 4.4 % (0.0-7.0); Hematocrit 27.8 % (41.0-53.0); Hemoglobin 9.2 g/dL (13.5-17.5); Lymphocytes # (auto) 2.1 uL; Lymphocytes % (auto) 17.4 % (10.0-50.0); Mean Corpuscular Hemoglobin 28.8 pg (28.0-32.0); Mean Corpuscular Hgb Conc. 33.1 g/dL (32.0-36.0); Mean Corpuscular Volume 87.1 fL (80.0-100.0); Monocytes # (auto) 1.1 uL; Monocytes % (auto) 9.6 % (0.0-12.0); Neutrophils # (auto) 8.1 uL; Neutrophils % (auto) 67.6 % (37.0-80.0); Nucleated Red Blood Cells % 0.1 %; Platelet Count (auto) 388 10^3/uL (140-450); Red Blood Cells 3.19 10^6/uL (4.5-5.90); Red Cell Distribution Width 15.4 % (11.8-14.3); White Blood Cell 11.9 10^3/uL (4.4-10.8)
--- NOTE | 2019-08-21 07:27 | NUR ---
ENDORSED PATIENT CARE TO DAY SHIFT NURSE ZAIRA ANN. NO SX/SX OF DISTRESS, SOB OR PAIN.
[2019-08-21 07:30] LABS: Potassium 3.7 mmol/L (3.5-5.1)
--- NOTE | 2019-08-21 07:33 | NUR ---
Opening Shift Note Assumed care of patient, awake and alert. No S/S of distress/SOB or pain. For safety patients bed is locked and in the lowest position with 2 side rails up. Instructed on POC and to call for assist PRN, will continue to monitor for any changes in condition.
[2019-08-21 07:34] LABS: BUN/Creatinine Ratio 21.3; Calcium 7.6 mg/dL (8.5-10.1); Magnesium 1.8 mg/dL (1.6-2.6)
[2019-08-21] MEDS: Nepro With Carbsteady ButterPecan 8oz Carton PO SCH ×3 (08:00→22:17)
[2019-08-21] MEDS: SEVELAMER 800 MG TAB PO SCH ×2 (10:12→12:18)
[2019-08-21] MEDS: METOPROLOL TARTRATE 25 MG TAB PO SCH ×2 (10:13→22:07)
[2019-08-21] MEDS: BUMETANIDE 2.5mg/10ml (0.25 mg/ml) INJ IV SCH (10:13)
[2019-08-21] MEDS: ASPirin-EC 81 mg tab PO SCH (10:13)
[2019-08-21] MEDS: TICAGRELOR 90 MG TAB PO SCH ×2 (10:13→22:07)
[2019-08-21] MEDS: PANTOPRAZOLE 40 MG TAB PO SCH (10:19)
--- NOTE | 2019-08-21 11:10 | NUR ---
Paged Dr. Davis for update of patients CXR and labs
--- NOTE | 2019-08-21 12:15 | NUR ---
SPOKE WITH DOCTOR BLANCA RICHARDS TO D/C. FOLLOW UP WITH DR. BURGESS IN 1 WEEK.
--- NOTE | 2019-08-21 12:22 | NUR ---
SPOKE WITH DOCTOR BLANCA WILKERSON TO D/C HOME
[2019-08-21] MEDS: HYDROcodone-ACET 5/325MG TAB PO PRN ×2 (12:57→22:16)
--- NOTE | 2019-08-21 15:09 | NUR ---
D/C : if pt gets d/c tonoc, pt is already set up with [facility] [phone] and fax [phone] and can go home from CM/SS point of view. Addendum: 08/21/19 at 1519 by Anne Cui RN CM Do not d/c unless pt has been evaluated for home 02 and if qualifies, this will need to be set up/ delivered before pt can go home.
--- NOTE | 2019-08-21 20:40 | NUR ---
PAGED DR KENYON PATIENT COMPLAINS OF INCREASED SWELLING TO BILATERAL EXTREMITIES AND STATES THAT HE IS CONCERNED THAT "SOMETHING IS WRONG. AWAITING CALL BACK.
--- NOTE | 2019-08-21 21:14 | NUR ---
DR KENYON CANCELLED DISCHARGE FOR TODAY AFTER PATIENT COMPLAINED OF INCREASED LOWER BILATERAL EXTREMITY EDEMA. MD STATED THAT HE WILL BE HERE IN THE MORNING. FAMILY AND PATIENT MADE AWARE.
[2019-08-21] MEDS: INSULIN LANTUS (GLARGINE) 1 /0.01ml (100units/ml) SC SCH (22:00)
[2019-08-21] MEDS: ATORVASTATIN 20 MG TAB PO SCH (22:07)
--- NOTE | 2019-08-22 00:20 | NUR ---
Report received from SETH Cassidy. Patient lying comfortably in bed, watching TV at this time. No complains at this time. Assumed care of patient, awake and alert. No S/S of distress/SOB or pain. Instructed on POC and to call for assist PRN, will continue to monitor for changes Q1hr and PRN.
[2019-08-22] MEDS: DOXYCYCLINE 100MG/250ML 250 ML IV SCH (05:25)
[2019-08-22 05:43] VITALS: BP 116/64
[2019-08-22] MEDS: ACCU-CHEK COMFORT CURVE STRIP VI SCH (06:46)
[2019-08-22] MEDS: InsuLIN REG 1unit/0.01ml Soln (100units/ml) SC SCH (06:46)
[2019-08-22] MEDS: LEVOTHYROXINE SODIUM 50 MCG TAB PO SCH (06:47)
[2019-08-22] MEDS: IPRATROPIUM BROM 0.5 MG/2.5ML INH SOL NEB SCH ×2 (07:09→13:26)
[2019-08-22] MEDS: ALBUTEROL SULF 2.5 MG/0.5ML(0.5%) NEB SOLN NEB SCH ×2 (07:10→13:26)
--- NOTE | 2019-08-22 07:40 | NUR ---
Opening Shift Note Assumed care of patient. Patient in bed sleeping no S/S of distress/SOB or pain noted/stated. Breath sounds even and unlabored. Bed in low position locked, and call light within reach. will continue to monitor PRN and Q1hr. Signed: 08/22/19 at 1108 by SHEILA NICHOLSON SN <Co-Signature Required> Co-Signed: 08/22/19 at 1108 by Megan Shannon RN
[2019-08-22 08:00] VITALS: BP 147/71
[2019-08-22] MEDS: SEVELAMER 800 MG TAB PO SCH (08:00)
[2019-08-22] MEDS: Nepro With Carbsteady ButterPecan 8oz Carton PO SCH (08:00)
[2019-08-22] MEDS: ASPirin-EC 81 mg tab PO SCH (08:46)
[2019-08-22] MEDS: PANTOPRAZOLE 40 MG TAB PO SCH (08:46)
[2019-08-22] MEDS: TICAGRELOR 90 MG TAB PO SCH (08:46)
[2019-08-22] MEDS: BUMETANIDE 2.5mg/10ml (0.25 mg/ml) INJ IV SCH (08:48)
[2019-08-22] MEDS: PROMETHAZINE-DM 5 ML ORAL SYRUP PO PRN (08:49)
[2019-08-22] MEDS: METOPROLOL TARTRATE 25 MG TAB PO SCH (08:49)
[2019-08-22 09:00] VITALS: BP 147/78
[2019-08-22] MEDS: HYDROcodone-ACET 5/325MG TAB PO PRN (09:22)
--- NOTE | 2019-08-22 12:15 | NUR ---
Discharge planning per consult, patient has orders for home health and a nebulizer. Referral was sent to [facility] per request of medical group case sealer Holly and Manuelito for the Nebulizer which will be delivered to patient's home. Placed a follow up call spoke with Ashlyn from [facility] and was advised that patient will be accepted onto services and start of care will be within 24-48 hours upon discharge. Nurse Rochelle was advised of discharge plan. Addendum: 08/22/19 at 1228 by TIM MATTHEW Amended: Links added. Addendum: 08/22/19 at 1718 by TIM MATTHEW Placed a call to Dr. Alvarado regarding [facility] Leveling Machine Operator Holly's notification of a nebulizer that was to be ordered by the doctor. I advised that no order was received. She advised she would follow up and work on it. In speaking with Dr. Alvarado regarding another patient, I inquired about the order for the nebulizer for this patient and advised that he was on oxygen while in-patient. he advised that he would only put in the order for the nebulizer. Order was placed and acknowledged.
--- NOTE | 2019-08-22 13:26 | NUR ---
Respiratory note: SCHEDULED MED NEB TX NOT GIVEN DUE TO PATIENT REFUSAL. PATIENT STATED THAT HE IS GOING HOME AND DOESN'T WANT A TX. NO RESPIRATORY DISTRESS NOTED OR STATED. WILL CONTINUE TO MONITOR PATIENT.
--- NOTE | 2019-08-22 13:30 | NUR ---
MIDLINE REMOVAL While removing the adhesive dressing carefully from midline on right upper extremity, patient's skin tore and began to bleed slightly. No c/o pain. No s/s of distress/sob/ noted stated. Patients skin tear cleansed with normal saline and Optifoam applied to site. Bleeding subsided. Picture taken. Signed: 08/22/19 at 1412 by SHEILA NICHOLSON <Co-Signature Required> Co-Signed: 08/22/19 at 1412 by Megan Shannon RN
== END 2019-08-22 14:05 | disposition home health service (06) | DRG 853 ==
LOC: ER 12:57 → EDBD 12:57 → TELE 12:58 → TELE-WESTW 08-12 11:25
PROVIDERS: ADMIT Nurse Practitioner Acute Care; ATTEND Hospitalist
PROC: 027034Z Dilation of Coronary Artery, One Artery with Drug-eluting Intraluminal Device, Percutaneous Approach (ICD-10-PCS; principal; 2019-08-12)
PROC: 4A023N7 Measurement of Cardiac Sampling and Pressure, Left Heart, Percutaneous Approach (ICD-10-PCS; 2019-08-12)
PROC: B2111ZZ Fluoroscopy of Multiple Coronary Arteries using Low Osmolar Contrast (ICD-10-PCS; 2019-08-12)
PROC: B2151ZZ Fluoroscopy of Left Heart using Low Osmolar Contrast (ICD-10-PCS; 2019-08-12)
DX: A41.9 Sepsis, unspecified organism (principal); J18.9 Pneumonia, unspecified organism; N17.0 Acute kidney failure with tubular necrosis; J96.21 Acute and chronic respiratory failure with hypoxia; N18.6 End stage renal disease; I21.4 Non-ST elevation (NSTEMI) myocardial infarction; E87.1 Hypo-osmolality and hyponatremia; I13.2 Hypertensive heart and chronic kidney disease with heart failure and with stage 5 chronic kidney disease, or end stage renal disease; I42.0 Dilated cardiomyopathy; I50.42 Chronic combined systolic (congestive) and diastolic (congestive) heart failure; J44.0 Chronic obstructive pulmonary disease with (acute) lower respiratory infection; I48.91 Unspecified atrial fibrillation; I25.10 Atherosclerotic heart disease of native coronary artery without angina pectoris; E11.22 Type 2 diabetes mellitus with diabetic chronic kidney disease; K21.9 Gastro-esophageal reflux disease without esophagitis; E66.9 Obesity, unspecified; E88.09 Other disorders of plasma-protein metabolism, not elsewhere classified; D63.8 Anemia in other chronic diseases classified elsewhere; E83.39 Other disorders of phosphorus metabolism; E87.5 Hyperkalemia; I25.119 Atherosclerotic heart disease of native coronary artery with unspecified angina pectoris; I44.7 Left bundle-branch block, unspecified; Z90.49 Acquired absence of other specified parts of digestive tract; Z83.3 Family history of diabetes mellitus; Z80.1 Family history of malignant neoplasm of trachea, bronchus and lung; Z79.4 Long term (current) use of insulin; Z95.5 Presence of coronary angioplasty implant and graft; Z79.01 Long term (current) use of anticoagulants; Z99.81 Dependence on supplemental oxygen; Z79.899 Other long term (current) drug therapy; Z82.49 Family history of ischemic heart disease and other diseases of the circulatory system; Z68.32 Body mass index [BMI] 32.0-32.9, adult
CPT/HCPCS: 36415; 36600; 71045; 71046; 76775; 80048; 80053; 80061; 81001; 82306; 82570; 82805; 82962; 83036; 83605; 83735; 83970; 84100; 84156; 84300; 84439; 84443; 84484; 84550; 85007; 85025; 85027; 85610; 85730; 86803; 87040; 87340; 93005; 94640; 99152; 99291; G0378; J0696; J1815; J2250; J2405; J3490; Q9967

== ENCOUNTER 2020-11-30 15:12 | Inpatient (IN) | payer BC ==
[~2020-11-30] VITALS: Ht 188 cm; Wt 95.3 kg
[~2020-11-30 15:12] MED LIST changes: -ASP81EC PO; +ASPI-394 PO; +CLOP75TA28 PO; +OMEP20TA PO; +TICA90TA PO
[2020-11-30] MEDS ORDERED: ONDANSETRON HCL 4 MG/2 ML VIAL IV ONE (15:15)
[2020-11-30 16:17] LABS: Basophils # (auto) 0 10 ^3/uL (0-0.2); Basophils % (auto) 0.1 % (0.0-2.0); Eosinophils # (auto) 0 10 ^3/uL (0-0.8); Hematocrit 28.7 % (41.0-53.0); Hemoglobin 9.7 g/dL (13.5-17.5); Lymphocytes # (auto) 0.8 10 ^3/uL (0.4-5.4); Lymphocytes % (auto) 4.1 % (10.0-50.0); Mean Corpuscular Hemoglobin 29.4 pg (28.0-32.0); Mean Corpuscular Hgb Conc. 33.8 g/dL (32.0-36.0); Mean Corpuscular Volume 87.1 fL (80.0-100.0); Monocytes # (auto) 2.1 10 ^3/uL (0-1.3); Monocytes % (auto) 10.6 % (0.0-12.0); Neutrophils # (auto) 16.9 10 ^3/uL (1.6-8.6); Neutrophils % (auto) 85.2 % (37.0-80.0); Platelet Count (auto) 156 10^3/uL (140-450); Red Blood Cells 3.29 10^6/uL (4.5-5.90); Red Cell Distribution Width 14.3 % (11.8-14.3); White Blood Cell 19.9 10^3/uL (4.4-10.8)
[2020-11-30 16:29] LABS: Albumin 2.2 g/dL (3.4-5.0); Magnesium 1.7 mg/dL (1.6-2.6); Potassium 4.6 mmol/L (3.5-5.1)
[2020-11-30] MEDS ORDERED: SODIUM CHLORIDE 0.9% 500 ML IV ONE (16:45)
[2020-11-30] MEDS ORDERED: CALCIUM GLUC 4.65meq/50ml D5AE 50 ML IV ONE (16:45)
[2020-11-30] MEDS ORDERED: SODIUM BICARBONATE 8.4 % INJ 50ML VIAL IV ONE (16:45)
[2020-11-30 16:50] LABS: BUN/Creatinine Ratio 15.1; Bilirubin, Total 0.3 mg/dL (0.2-1.0); Total Protein 6.5 g/dL (6.4-8.2)
[2020-11-30] MEDS ORDERED: cefTRIAXone 1GM/50ML D5W 50 ML IV ONE (17:15)
[2020-11-30] MEDS ORDERED: OMEP-260 PO (17:28)
[2020-11-30] MEDS ORDERED: INSUINJ37 SC (17:28)
[2020-11-30] MEDS ORDERED: ATOR40TA52 PO (17:28)
[2020-11-30] MEDS ORDERED: TRAM50TA2 PO (17:29)
[2020-11-30] MEDS ORDERED: FURO80TA3 PO (17:29)
[2020-11-30] MEDS ORDERED: FERR325T20 PO (17:30)
[2020-11-30] MEDS ORDERED: AMLO-483 PO (17:34)
[2020-11-30] MEDS ORDERED: ASPI-498 PO (17:35)
[2020-11-30] MEDS ORDERED: NITROGLYCERIN 0.4 MG SL TAB SL PRN ×2 (17:45)
[2020-11-30] MEDS ORDERED: MORPHINE SULF INJ 2 MG/ML SYRINGE 1ML IV PRN ×2 (17:45)
[2020-11-30] MEDS ORDERED: HEPARIN SODIUM (PORCINE) 5000 UNITS/ML 1ML VIAL IV ONE (17:45)
[2020-11-30] MEDS ORDERED: HYDROcodone-ACET 5/325MG TAB PO PRN (17:45)
[2020-11-30] MEDS ORDERED: InsuLIN REG 1unit/0.01ml Soln (100units/ml) SC ONE (17:45)
[2020-11-30] MEDS ORDERED: DEXTROSE (50%) 50ML SYRG IV PRN (17:45)
[2020-11-30] MEDS ORDERED: ONDANSETRON HCL 4 MG/2 ML VIAL IV PRN (17:45)
[2020-11-30] MEDS ORDERED: LORazepam 0.5 MG TAB PO PRN (17:45)
[2020-11-30] MEDS ORDERED: DOCUSATE SOD 100 MG CAP PO PRN (17:45)
[2020-11-30] MEDS ORDERED: CEFEPIME 1 GM in SODIUM CHL 0.9% 50 ML IV ONE (18:00)
[2020-11-30] MEDS ORDERED: FUROSEMIDE 20 MG/2 ML VIAL IV ONE (18:00)
[2020-11-30] MEDS ORDERED: ALBUTEROL SULF 2.5 MG/0.5ML(0.5%) NEB SOLN NEB ONE (18:15)
[2020-11-30] MEDS ORDERED: PANTOPRAZOLE 40 MG/10 ML VIAL INJ IV ONE (18:15)
[2020-11-30] MEDS ORDERED: ATORVASTATIN 20 MG TAB PO ONE (18:15)
[2020-11-30] MEDS ORDERED: ALBUTEROL SULF 2.5 MG/0.5ML(0.5%) NEB SOLN NEB PRN (18:15)
[2020-11-30] MEDS: METOPROLOL SUCCINATE XL 50 MG TAB PO ONE ×2 (18:20→18:59)
[2020-11-30] MEDS ORDERED: NOREPINEPHRINE 8 MG/250ML KIT 250 ML IV ONE (18:23)
[2020-11-30] MEDS: NOREPINEPHRINE 8 MG/250ML KIT 250 ML IV SCH (18:45)
[2020-11-30] MEDS: HEPARIN DRIP/D5W 100UNITS/ML 250 ML IV SCH (19:06)
[2020-11-30 19:12] LABS: INR 1.1 (0.9-1.15); Partial Thromboplastin Time 29.2 sec (23.0-31.2)
[2020-11-30] MEDS: MORPHINE SULF INJ 2 MG/ML SYRINGE 1ML IV PRN (20:19)
[2020-11-30] MEDS: InsuLIN REG 1unit/0.01ml Soln (100units/ml) SC SCH (21:17)
[2020-11-30] MEDS: ACCU-CHEK COMFORT CURVE STRIP VI SCH (22:43)
[2020-12-01 00:41] LABS: INR 1.18 (0.9-1.15); Partial Thromboplastin Time 44.4 sec (23.0-31.2)
[2020-12-01 02:13] LABS: Alcohol, Urine < 3.0 mg/dL (0-10); Amphetamine Screen, Urine NEGATIVE (NEGATIVE); Barbiturate Scree,Urine NEGATIVE (NEGATIVE); Benzodiazephine Screen, Urine NEGATIVE (NEGATIVE); Cannabinoid Screen, Urine NEGATIVE (NEGATIVE); Cocaine Screen, Urine NEGATIVE (NEGATIVE); Opiate Scree,Urine NEGATIVE (NEGATIVE); Phencyclidine Screen, Urine NEGATIVE (NEGATIVE)
[2020-12-01 02:28] LABS: Urine Amorphous Crystal FEW /hpf (None Seen); Urine Bacteria FEW /hpf (None Seen); Urine Blood TRACE /uL (Negative); Urine Specific Gravity 1.014 (1.001-1.035); Urine WBC 1 /hpf (0 - 3)
[2020-12-01] MEDS: FUROSEMIDE 20 MG/2 ML VIAL IV SCH ×2 (05:26→18:14)
[2020-12-01] MEDS: InsuLIN REG 1unit/0.01ml Soln (100units/ml) SC SCH ×3 (05:33→17:36)
[2020-12-01] MEDS: ACCU-CHEK COMFORT CURVE STRIP VI SCH ×3 (05:38→17:00)
[2020-12-01] MEDS: MORPHINE SULF INJ 2 MG/ML SYRINGE 1ML IV PRN ×3 (05:42→18:03)
[2020-12-01 05:57] LABS: Basophils # (auto) 0 10 ^3/uL (0-0.2); Basophils % (auto) 0.2 % (0.0-2.0); Eosinophils # (auto) 0 10 ^3/uL (0-0.8); Eosinophils % (auto) 0.1 % (0.0-7.0); Hematocrit 28.3 % (41.0-53.0); Hemoglobin 9.7 g/dL (13.5-17.5); Lymphocytes # (auto) 2.1 10 ^3/uL (0.4-5.4); Lymphocytes % (auto) 8.7 % (10.0-50.0); Mean Corpuscular Hemoglobin 30.1 pg (28.0-32.0); Mean Corpuscular Hgb Conc. 34.3 g/dL (32.0-36.0); Mean Corpuscular Volume 87.8 fL (80.0-100.0); Monocytes # (auto) 2.8 10 ^3/uL (0-1.3); Monocytes % (auto) 11.8 % (0.0-12.0); Neutrophils # (auto) 18.6 10 ^3/uL (1.6-8.6); Neutrophils % (auto) 79.2 % (37.0-80.0); Nucleated Red Blood Cells % 0.1 %; Platelet Count (auto) 185 10^3/uL (140-450); Red Blood Cells 3.22 10^6/uL (4.5-5.90); Red Cell Distribution Width 14.1 % (11.8-14.3); White Blood Cell 23.5 10^3/uL (4.4-10.8)
[2020-12-01 06:27] LABS: Magnesium 1.8 mg/dL (1.6-2.6); Potassium 4.8 mmol/L (3.5-5.1)
[2020-12-01 06:40] LABS: Albumin 2.1 g/dL (3.4-5.0); BUN/Creatinine Ratio 15.7; Bilirubin, Total 0.3 mg/dL (0.2-1.0); Total Protein 6.4 g/dL (6.4-8.2); Uric Acid 11.2 mg/dL (3.5-7.2)
[2020-12-01 06:44] LABS: Phosphorus 9.6 mg/dL (2.5-4.90)
[2020-12-01] MEDS ORDERED: SODIUM CHL 0.9% 1000 ML BAG XX ONE (07:00)
[2020-12-01 09:34] LABS: INR 1.12 (0.9-1.15)
[2020-12-01] MEDS ORDERED: ASPirin-EC 81 mg tab PO SCH (10:00)
[2020-12-01] MEDS ORDERED: PANTOPRAZOLE 40 MG/10 ML VIAL INJ IV SCH (10:00)
[2020-12-01] MEDS ORDERED: CEFEPIME 1 GM in SODIUM CHL 0.9% 50 ML IV SCH (10:00)
[2020-12-01] MEDS ORDERED: fentaNYL CITRATE 100 MCG/2 ML VL IV ONE (10:30)
[2020-12-01] MEDS ORDERED: MIDAZOLAM HCL 1MG/1ML-2 ML VIAL IV ONE (10:30)
[2020-12-01] MEDS ORDERED: HEPARIN SODIUM (PORCINE) 5000 UNITS/ML 1ML VIAL ONE (12:18)
[2020-12-01] MEDS ORDERED: IOHEXOL 300 MG/ML 100ML BOTTLE IJ ONE (13:45)
[2020-12-01] MEDS ORDERED: LIDOCAINE 2%HCL (LOCAL ANESTH.) INJ 20ML MDV ONE (13:46)
[2020-12-01] MEDS ORDERED: ceFAZolin 1GM/50ML 50 ML IV ONE (14:44)
[2020-12-01] MEDS: HEPARIN DRIP/D5W 100UNITS/ML 250 ML IV SCH (17:45)
[2020-12-01] MEDS ORDERED: CEFEPIME 0.5 GM in SODIUM CHL 0.9% 50 ML IV SCH (18:00)
[2020-12-01] MEDS: SEVELAMER 800 MG TAB PO SCH (19:04)
[2020-12-01] MEDS: NOREPINEPHRINE 8 MG/250ML KIT 250 ML IV SCH (19:05)
[2020-12-01] MEDS ORDERED: EPOETIN ALFA 10,000 UNIT/1 ML VIAL SC ONE (21:00)
[2020-12-01] MEDS ORDERED: ATORVASTATIN 20 MG TAB PO SCH (22:00)
[2020-12-01] MEDS ORDERED: ENOXAPARIN SOD 30 MG/0.3 ML SYRINGE SC ONE (22:30)
[2020-12-02] MEDS ORDERED: ENOXAPARIN SOD 30 MG/0.3 ML SYRINGE IV ONE
[2020-12-02 02:20] LABS: Albumin 2.2 g/dL (3.4-5.0); BUN/Creatinine Ratio 12.8
[2020-12-02 02:25] LABS: Bilirubin, Total 0.6 mg/dL (0.2-1.0); Total Protein 6.4 g/dL (6.4-8.2)
[2020-12-02] MEDS: NOREPINEPHRINE 8 MG/250ML KIT 250 ML IV SCH (02:53)
[2020-12-02] MEDS ORDERED: ALBUMIN 5% 250 ML IV ONE (03:15)
[2020-12-02] MEDS ORDERED: AMIODARONE HCL 150 MG in D5W 5% 100 ML IV ONE (04:15)
[2020-12-02] MEDS ORDERED: AMIODARONE HCL (50 MG/ ML) 3 ML VIAL IV ONE (04:29)
[2020-12-02] MEDS ORDERED: AMIODARONE 450mg/250ml AE 250 ML IV SCH ×2 (04:30→10:30)
[2020-12-02] MEDS ORDERED: MIDAZOLAM DRIP 50 mg/50mL 50 ML IV SCH (05:45)
[2020-12-02] MEDS ORDERED: SODIUM CHLORIDE 0.9% 500 ML IV ONE ×2 (05:45→07:00)
[2020-12-02] MEDS ORDERED: MIDAZOLAM DRIP 50 mg/50mL 50 ML IV ONE (05:50)
[2020-12-02 06:01] LABS: Basophils # (auto) 0.1 10 ^3/uL (0-0.2); Basophils % (auto) 0.6 % (0.0-2.0); Eosinophils # (auto) 0 10 ^3/uL (0-0.8); Eosinophils % (auto) 0.2 % (0.0-7.0); Hematocrit 30.2 % (41.0-53.0); Hemoglobin 9.8 g/dL (13.5-17.5); Lymphocytes # (auto) 4.2 10 ^3/uL (0.4-5.4); Lymphocytes % (auto) 18.4 % (10.0-50.0); Mean Corpuscular Hemoglobin 30.3 pg (28.0-32.0); Mean Corpuscular Hgb Conc. 32.6 g/dL (32.0-36.0); Mean Corpuscular Volume 92.9 fL (80.0-100.0); Monocytes # (auto) 1.2 10 ^3/uL (0-1.3); Monocytes % (auto) 5.4 % (0.0-12.0); Neutrophils # (auto) 17.1 10 ^3/uL (1.6-8.6); Neutrophils % (auto) 75.4 % (37.0-80.0); Nucleated Red Blood Cells % 0.2 %; Platelet Count (auto) 147 10^3/uL (140-450); Red Blood Cells 3.25 10^6/uL (4.5-5.90); Red Cell Distribution Width 14.9 % (11.8-14.3); White Blood Cell 22.7 10^3/uL (4.4-10.8)
[2020-12-02 06:16] LABS: Albumin 2.1 g/dL (3.4-5.0); Calcium 9.9 mg/dL (8.5-10.1); Potassium 4.7 mmol/L (3.5-5.1)
[2020-12-02 06:27] LABS: BUN/Creatinine Ratio 11.9; Bilirubin, Total 0.7 mg/dL (0.2-1.0); Total Protein 6.1 g/dL (6.4-8.2)
[2020-12-02] MEDS ORDERED: SODIUM BICARBONATE 50ML VIAL 150 ML in SOD CHL 0.45% 1,000 ML IV SCH ×2 (07:00→08:00)
[2020-12-02] MEDS ORDERED: SODIUM BICARBONATE 8.4 % INJ 50ML VIAL IV ONE (07:00)
[2020-12-02] MEDS ORDERED: EPINEPHrine HCL 1 MG/10 ML SYRG ONE (07:15)
[2020-12-02] MEDS ORDERED: VASOPRESSIN 50 UNITS in D5W 5% 247.5 ML IV SCH (07:30)
[2020-12-02] MEDS ORDERED: PHENYLEPHRINE IV 250 ML IV ONE (07:37)
[2020-12-02] MEDS: ACCU-CHEK COMFORT CURVE STRIP VI SCH ×2 (07:42)
[2020-12-02] MEDS: FUROSEMIDE 20 MG/2 ML VIAL IV SCH (07:45)
[2020-12-02] MEDS ORDERED: PHENYLEPHRINE IV 250 ML IV SCH (07:45)
[2020-12-02] MEDS: SEVELAMER 800 MG TAB PO SCH (07:46)
[2020-12-02] MEDS: InsuLIN REG 1unit/0.01ml Soln (100units/ml) SC SCH ×2 (07:46)
[2020-12-02] MEDS ORDERED: DOPamine 1600MCG/ML D5W 250 ML IV ONE (08:07)
[2020-12-02] MEDS ORDERED: EPINEPHrine HCL 250 ML IV ONE (08:07)
[2020-12-02] MEDS ORDERED: EPINEPHrine HCL 250 ML IV SCH (08:15)
[2020-12-02] MEDS ORDERED: DOPamine 1600MCG/ML D5W 250 ML IV SCH (08:15)
[2020-12-02 08:30] VITALS: BP 112/82
[2020-12-02] MEDS ORDERED: EPINEPHrine HCL 1 MG/10 ML SYRG IV ONE (13:26)
[2020-12-02] MEDS ORDERED: SODIUM BICARBONATE 8.4% INJ 50ML SYRINGE IV ONE (13:26)
[2020-12-02] MEDS ORDERED: CALCIUM CHL(10%) 100MG/ML 10ML VIAL IV ONE (13:26)
[2020-12-02] MEDS ORDERED: CALCIUM ACETATE 667 MG CAP NG SCH (14:00)
[2020-12-03] MEDS ORDERED: SODIUM CHL 0.9% 1000 ML BAG XX ONE (07:00)
[2020-12-03] MEDS ORDERED: EPOETIN ALFA 10,000 UNIT/1 ML VIAL SC ONE (21:00)
== END 2020-12-02 08:18 ==
LOC: EDBD 15:12 → ER 15:12 → OVERFLOW 15:13
PROVIDERS: ADMIT Hospitalist; ATTEND Internal Medicine
PROC: 5A1D70Z Performance of Urinary Filtration, Intermittent, Less than 6 Hours Per Day (ICD-10-PCS; 2020-12-01)
PROC: 06HM33Z Insertion of Infusion Device into Right Femoral Vein, Percutaneous Approach (ICD-10-PCS; 2020-12-01)
PROC: 4A143B0 Monitoring of Venous Pressure, Central, Percutaneous Approach (ICD-10-PCS; 2020-12-01)
PROC: 0JH63XZ Insertion of Tunneled Vascular Access Device into Chest Subcutaneous Tissue and Fascia, Percutaneous Approach (ICD-10-PCS; 2020-12-01)
PROC: 02H633Z Insertion of Infusion Device into Right Atrium, Percutaneous Approach (ICD-10-PCS; 2020-12-01)
PROC: B5181ZA Fluoroscopy of Superior Vena Cava using Low Osmolar Contrast, Guidance (ICD-10-PCS; 2020-12-01)
PROC: 0BH17EZ Insertion of Endotracheal Airway into Trachea, Via Natural or Artificial Opening (ICD-10-PCS; principal; 2020-12-02)
PROC: 5A1935Z Respiratory Ventilation, Less than 24 Consecutive Hours (ICD-10-PCS; 2020-12-02)
PROC: 5A12012 Performance of Cardiac Output, Single, Manual (ICD-10-PCS; 2020-12-02)
DX: I21.4 Non-ST elevation (NSTEMI) myocardial infarction (principal); N18.6 End stage renal disease; I50.23 Acute on chronic systolic (congestive) heart failure; E43 Unspecified severe protein-calorie malnutrition; J18.9 Pneumonia, unspecified organism; J96.01 Acute respiratory failure with hypoxia; E87.1 Hypo-osmolality and hyponatremia; I48.19 Other persistent atrial fibrillation; I13.2 Hypertensive heart and chronic kidney disease with heart failure and with stage 5 chronic kidney disease, or end stage renal disease; N17.9 Acute kidney failure, unspecified; R65.10 Systemic inflammatory response syndrome (SIRS) of non-infectious origin without acute organ dysfunction; D62 Acute posthemorrhagic anemia; I50.82 Biventricular heart failure; E87.8 Other disorders of electrolyte and fluid balance, not elsewhere classified; Z99.2 Dependence on renal dialysis; I25.5 Ischemic cardiomyopathy; I25.10 Atherosclerotic heart disease of native coronary artery without angina pectoris; I46.9 Cardiac arrest, cause unspecified; E78.5 Hyperlipidemia, unspecified; I27.21 Secondary pulmonary arterial hypertension; K76.0 Fatty (change of) liver, not elsewhere classified; R00.1 Bradycardia, unspecified; E03.9 Hypothyroidism, unspecified; Z20.822 Contact with and (suspected) exposure to COVID-19; D63.1 Anemia in chronic kidney disease; K21.9 Gastro-esophageal reflux disease without esophagitis; E83.39 Other disorders of phosphorus metabolism; Y92.89 Other specified places as the place of occurrence of the external cause; Z79.899 Other long term (current) drug therapy; Z80.1 Family history of malignant neoplasm of trachea, bronchus and lung; Z82.49 Family history of ischemic heart disease and other diseases of the circulatory system; Z83.3 Family history of diabetes mellitus; Z85.118 Personal history of other malignant neoplasm of bronchus and lung; Z95.5 Presence of coronary angioplasty implant and graft; Z79.4 Long term (current) use of insulin; Z90.49 Acquired absence of other specified parts of digestive tract; E13.22 Other specified diabetes mellitus with diabetic chronic kidney disease; R57.0 Cardiogenic shock
CPT/HCPCS: 36415; 36556; 36561; 36600; 71045; 76000; 76937; 77001; 80053; 80061; 80307; 81001; 82306; 82805; 82962; 83036; 83605; 83735; 83880; 83970; 84100; 84132; 84443; 84484; 84550; 85025; 85379; 85610; 85730; 87040; 87086; 87340; 87426; 90935; 92950; 93005; 93306; 94003; 94640; 96361; 96365; 99291; C9113; G0378; J0171; J0690; J0696; J0885; J1642; J2250; J2405; J7060